=== PATIENT | female | born 1965 | race Caucasian/White ===

== ENCOUNTER 2019-09-27 12:46 | Outpatient (CLI) | payer OTHER, SELFPAY ==
--- NOTE | ~2019-09-27 | US_ITS ---
US pelvic complete w TV DATE: 09/27/2019 13:20 INDICATION: Irregular menstruation TECHNIQUE: Real-time imaging via transabdominal and transvaginal approaches COMPARISON: 09/15/2018 transvaginal pelvic ultrasound examination FINDINGS: The uterus measures approximately 9.7 cm height, up to 4.7 cm anteroposterior dimension. The central endometrial echo complex measures approximately 9 mm maximal anteroposterior dimension. A n approximately 1. 81.3 cm probable uterine fibroids are noted. 1.1 cm right ovarian cyst. Right ovary measures 1.7 x 1.3 x 2.2 cm. Left ovary measures 1.3 x 1 x 1 c m. There is blood flow to the ovaries. No pelvic mass or abnormal pelvic fluid collection is noted otherwise. IMPRESSION: Mild uterine enlargement with evidence of uterine fibroids 1.1 cm right ovarian cyst Reviewed, dictated and finalized at Location [facility]. Reviewed, dictated and finalized at location B.
== END 2019-09-27 12:47 ==
PROVIDERS: Visit Provider Obstetrics & Gynecology
DX: N92.6 Irregular menstruation, unspecified (principal); N83.201 Unspecified ovarian cyst, right side; D25.9 Leiomyoma of uterus, unspecified
CPT/HCPCS: 76830; 76856

== ENCOUNTER → 2019-10-25 14:50 | Outpatient (CLI) | payer OTHER, SELFPAY ==
--- NOTE | ~2019-10-25 | MM_ITS ---
EXAMINATION: MM screening [facility] BI w [facility] HISTORY: Screening mammogram TECHNIQUE: Craniocaudal and mediolateral oblique 3-D tomosynthesis images were obtained and synthetic 2-D images were generated. CAD analysis was submitted and interpreted. COMPARISON: 06/23/2018, 11/28/2016 bilateral digital screening mammogram examinations BREAST PARENCHYMAL COMPOSITION: There are scattered areas of fibroglandular density. FINDINGS: Occasional benign calcifications. There is no evidence of suspicious mass, calcification, o r architectural distortion to suggest malignancy in either breast. There has been no suspicious inter timur change. IMPRESSION: 1. No mammographic evidence of malignancy. 2. Recommend routine screening mammography in one year. BI-RADS Category 2: Benign finding(s). Reviewed, dictated and finalized at location A.
== END ==
PROVIDERS: Visit Provider Obstetrics & Gynecology
DX: Z12.31 Encounter for screening mammogram for malignant neoplasm of breast (principal)
CPT/HCPCS: 77063; 77067

== ENCOUNTER 2019-12-13 10:31 | Outpatient (CLI) | payer OTHER, SELFPAY ==
--- NOTE | 2019-12-13 10:33 | ECG_ITS ---
Measurements Intervals [place] Rate: 57 P: 40 IN: 174 QRS: -25 QRSD: 105 T: 14 QT: 417 QTc: 408 Interpretive Statements SINUS BRADYCARDIA DELAYED PRECORDIAL R/S TRANSITION BASELINE ARTIFACT- I, II, III, AVR, AVL BORDERLINE ECG Electronically Signed On 12-13-2019 10:52:46 CDT by Bassem Painter D.O.
== END 2019-12-13 10:32 | disposition home or self-care (01) ==
PROVIDERS: PCP Nurse Practitioner Adult Health; Visit Provider Obstetrics & Gynecology
DX: N93.9 Abnormal uterine and vaginal bleeding, unspecified (principal); I10 Essential (primary) hypertension; Z01.818 Encounter for other preprocedural examination; R94.31 Abnormal electrocardiogram [ECG] [EKG]
CPT/HCPCS: 36415; 86850; 86900; 86901; 93005

== ENCOUNTER 2019-12-18 01:23 | Outpatient (CLI) | payer OTHER, SELFPAY ==
[2019-12-18 18:16] LABS: SARS-CoV-2 RNA PCR Negative
== END 2019-12-18 01:24 | disposition home or self-care (01) ==
LOC: ANHCOVIDDT 01:24
PROVIDERS: PCP Nurse Practitioner Adult Health; Visit Provider Obstetrics & Gynecology
DX: Z01.812 Encounter for preprocedural laboratory examination (principal); Z20.828 Contact with and (suspected) exposure to other viral communicable diseases
CPT/HCPCS: 87635; C9803; U0003

== ENCOUNTER 2019-12-20 01:13 | Day surgery (SDC) | payer OTHER, SELFPAY ==
[2019-12-11 17:49] VITALS: BMI 29.9
--- NOTE | 2019-12-19 14:05 | P.PNAN_ITS ---
Anes - Initial Pre Proc Eval Procedure: Operation Date: 12/20/19 07:30 Proposed Procedures p Robotic Assisted Laparoscopic Supracervical Hysterectomy Bilateral Salpingo- Oophorectomy - Ananda Serrano MD Date/Time: 12/19/19 14:05 Surgeon: Ananda Serrano MD Pre Op Diagnosis: Endometrial Polyp Patient Data Age: 54 Gender: F Height: 5 ft 4 in Weight: 79.3 kg Allergies Allergy/AdvReac Type Severity Reaction Status Date / Time No Known Allergies Allergy Verified 12/20/19 06:07 Home Medications Medication Instructions Recorded Confirmed Type losartan 50 mg tablet 50 mg PO DAILY 09/18/19 12/20/19 History Daily Multivitamin 1 tab-cap PO DAILY 12/11/19 12/20/19 History scopolamine base 1 mg over 3 days 1 patch TRANSDERM Q72H #1 each 12/11/19 12/20/19 Rx transdermal patch fluticasone furoate-vilanterol 1 inh INHALATION DAILY 12/20/19 12/20/19 History [Breo Ellipta] Patient hx anesthesia problems: none Family hx anesthesia problems: none PMFSH Past Medical History Medical History (Updated 12/19/19 @ 14:05 by Robert Garvey MD) Anemia Asthma Hepatitis Hypertension (normal spontaneous vaginal delivery) Surgical History Surgical History History of elbow surgery Family History Family History Sibling Carcinoma of colon Father Patient's father is Social History Social History Years smoked: 20 Smoking status: Current every day smoker Tobacco type: cigarettes Second hand tobacco smoke exposure: No Smoking end date: 03/08/08 Alcohol intake: current Drinks per week: 12 Gender identity (if verbalized by the patient): Female Spiritual care concerns: No Anes - Eval Final PreProcedure Day of Procedure 12/19/19 14:05 Patient weight: normal Heart: regular rate and rhythm Lungs: clear to auscultation Airway: Mallampati scale class II Neurological: alert and oriented Last oral intake: >/= 8 hours ASA classification: III Emergent: no Anesthetic plan: proceed Anesthesia type and monitoring: general ETT and standard monitoring Informed Consent: The patient's anesthetic plan and its attendant risks and benefits were discussed with the patient/family/POA. Questions were solicited and answers provided to the satisfaction of the patient/family/POA.
--- NOTE | 2019-12-19 16:38 | PM.IMHP ---
H&P: HPI History of Present Illness Date/Time: 12/19/19 16:38 Chief complaint: Endometrial Polyp Narrative: Karina Johns is a 54 year old female with irregular bleeding which started in July. She is perimenopausal. She has had a prior hysteroscopy D and C last year and an endometrial polyp was found. On recent ultrasound she had a small fibroid which she was informed at that size is usually not the cause of irregular bleeding. As part of irregular bleeding work up and history of endometrial polyp a subsequent endometrial biopsy showed endometrial polyp. She was offered hysteroscopic removal and was made aware that polyps can reoccur, as it did this time or option of definitive treatment of the recurrent irregular bleeding with hysterectomy. She desires hysterectomy. Counseled regarding risk benefit of oophorectomy or keeping ovaries. She desires ovaries to be removed also. Review of Systems Review of Systems: All systems reviewed & are unremarkable except as noted in HPI and below Constitutional: Constitutional: Reports no additional constitutional complaints Eyes: Eyes: Reports no additional eye complaints ENT: Reports Normal hearing present Cardiovascular: Cardiovascular: Denies chest pain and Denies dyspnea Respiratory: Respiratory: Reports no additional respiratory complaints, Denies dyspnea and Reports other Gastrointestinal: Gastrointestinal: Denies abdominal pain Genitourinary: Genitourinary: Reports no additional female genitourinary complaints, Reports as per HPI, Denies dyspareunia, Denies vaginal discharge, Denies vaginal dryness, Denies vaginal odor and Denies vaginal pruritus Integumentary/Breasts: Skin/Breast: Denies breast mass and Denies nipple discharge Neurologic: Reports Normal hearing present Psychiatric: Psychiatric: Reports no additional psychiatric complaints Endocrine: Endocrine: Reports no additional endocrine complaints Hematologic/Lymphatic: Hematologic/Lymphatic: Reports no additional hematologic/lymphatic complaints [facility] Past Medical History Medical History Anemia Asthma Hepatitis Hypertension (normal spontaneous vaginal delivery) Surgical History Surgical History History of elbow surgery Family History Family History Sibling Carcinoma of colon Father Patient's father is Social History Social History Years smoked: 20 Smoking status: Current every day smoker Tobacco type: cigarettes Second hand tobacco smoke exposure: No Smoking end date: 03/08/08 Alcohol intake: current Drinks per week: 12 Gender identity (if verbalized by the patient): Female Spiritual care concerns: No Meds Home Medications and Allergies Home Medications Medication Instructions Recorded Confirmed Type losartan 50 mg tablet 50 mg PO DAILY 09/18/19 12/20/19 History Daily Multivitamin 1 tab-cap PO DAILY 12/11/19 12/20/19 History scopolamine base 1 mg over 3 days 1 patch TRANSDERM Q72H #1 each 12/11/19 12/20/19 Rx transdermal patch fluticasone furoate-vilanterol 1 inh INHALATION DAILY 12/20/19 12/20/19 History [Breo Ellipta] Allergies Allergy/AdvReac Type Severity Reaction Status Date / Time No Known Allergies Allergy Verified 12/20/19 06:07 Exam Const: General: healthy appearing, no acute distress, alert and awake Nutritional Appearance: well nourished Orientation/consciousness: oriented to person, oriented to place and patient oriented x3 HENMT: Head: normal to inspection Eyes: General: appearance normal, both eyes and all related structures Neck: Neck: normal visual inspection and no lymphadenopathy Thyroid: thyroid normal Resp: Effort & Inspection: normal respiratory effort and other Auscultation: clear to
[2019-12-20] VITALS (14 sets, daily range): BP systolic 121–154; BP diastolic 42–80; PULSE 47–80; RESP 12–20; TEMP 36.2–37.1; O2SAT 99–100
[2019-12-20 07:00] LABS: Hematocrit 38.3 % (37.0-47.0); Hemoglobin 13.4 g/dL (12.0-15.0); Mean Corpuscular Volume 94.3 fl (80-100); Platelet Count Result 217 k/mm3 (150-375); Red Blood Count 4.06 M/mm3 (4.2-5.4); Red Cell Distribution Width 12.3 % (11.5-14.5); White Blood Count 7.7 K/mm3 (4.5-10.0)
[2019-12-20] MEDS: ACETAMINOPHEN 500 MG TABLET 1000 MG PO (07:08)
[2019-12-20] MEDS: KETOROLAC 15 MG/ML VIAL (*BKC) IV PUSH (07:09)
[2019-12-20] MEDS: LACTATED RINGERS 1,000 ML 30 ML IV CONT ×2 (07:09→10:36)
--- NOTE | 2019-12-20 07:18 | WPDHPUPDATE1 ---
History and Physical Update Update Date/Time: 12/20/19 07:18 History and Physical has been reviewed, including an updated exam of the patient. There are NO changes in the patient's condition. Risks, benefits, and alternatives have been discussed and questions answered. Patient agrees to proceed with procedure.
[2019-12-20] MEDS: ceFAZolin 2 GM/D5W 50 ML 2 GM/50 ML BAG IVPB (07:23)
--- NOTE | 2019-12-20 10:51 | PM.PROC ---
Procedure Note - Detailed Date of procedure: 12/20/19 Pre-op diagnosis: Endometrial Polyp 2.Abnormal uterine bleeding 3. Fibroid uterus Post-op diagnosis: other (4.Pelvic adhesions 5. Ovarian cyst) Procedure performed: Robotic assisted laparoscopic total hysterectomy and bilateral salpingectomy. 2. Lysis of adhesions 3. Cystoscopy Description of procedure: After informed consent was obtained patient was taken to the operating room and general endotracheal anesthesia was administered. She was placed in low lithotomy position and prepped and draped in sterile fashion. Prior to being prepped and draped and exam under anesthesia was performed and no masses were palpated uterus palpated to be normal size. Attention was then turned to the vagina. A Gomez catheter had been placed in bladder during prep. Weighted speculum was placed in the vagina. The anterior vaginal wall was retracted with a retractor. A single-tooth tenaculum was placed on the anterior lip of the cervix the uterus was sounded to 10 cm the cervix was dilated to an 8 rios dilator. The uterine manipulator was inserted and the bulb inflated a size 8 uterine manipulator was used. A 4cm colp cup was secured in the vagina. Prior to securing the cup the single-tooth tenaculum was removed from the cervix. Attention was then turned to the abdomen. With sterile gloves a horizontal incision was made 2cm above the umbilicus with the scalpel. A Veress needle was inserted into the abdomen confirmation into the abdomen was obtained with normal free flow of fluid through the veress needle and normal peritoneal pressures. A pneumoperitoneum of 15 mm per mercury was obtained and a size 5 trocar was inserted under laparoscopic visualization. Attention was then turned to the left side of the abdomen and a 8mm robotic port was inserted under laparoscopic visualization. Attention was then turned to the right side parallel to this and a robotic port was inserted under laparoscopic visualization. Superior and medial to this a curriculum assistant port was inserted under laparoscopic visualization. The 5 mm laparoscope was inserted into right port and an 8mm robotic port was inserted under laparoscopic visualization at the supraumbilical site. The patient was placed in Trendelenburg to allow the intestinal organs out of the pelvis. The robotic arms were then attached to the ports. Attention was then turned to the surgery console. Attention was turned to the right round ligament which was cauterized and cut the anterior leaf of the broad ligament was further dissected anteriorly to the vesicouterine peritoneum. The bladder was dissected from the lower uterine segment anteriorly. Attention was then turned to the infundibulopelvic ligament which was cauterized and incised. There were some mild adhesions of the right ovary to posterior uterus and broad ligament which were incised and cauterized to free the ovary from the posterior uterus. The broad ligament was further cauterized and ascending uterine vessels were cauterized. The uterine arteries were skeletonized. Attention was then turned to the left round ligament which was cauterized and incised. The anterior leaf of the broad ligament was further incised to the vesicouterine peritoneum. The bladder was further dissected from the rest of the lower uterine segment. The left fallopian tube was adhesed to the pelvic sidewall. The adhesions were cauterized. The left infundibulopelvic ligament was then cauterized and incised. The broad ligament was further cauterized posteriorly. The uterine vessels were skeletonized. The ascending uterine vessels were cauterized. The uterine vessels on the left were cauterized and the cardinal ligaments. The uterine arteries on the left side were cauterized and the cardinal ligament was cauterized. This was done after the bladder was fully dissected below the palpable colp cup. Attention was then turned to the right side and the uterine arteries on the right were
[2019-12-20] MEDS: DEXTROSE 5%/LACTATED RINGERS 1,000 ML 125 ML IV CONT (14:00)
[2019-12-20] MEDS: KETOROLAC 30 MG/ML VIAL (*BKC) IV PUSH (17:29)
[2019-12-21 00:46] VITALS: BP 117/67; PULSE 54; RESP 16; TEMP 36.4; O2SAT 99
[2019-12-21 04:46] VITALS: BP 113/72; PULSE 60; RESP 14; TEMP 36.4; O2SAT 98
[2019-12-21] MEDS: HYDROcodone/acetaminophen (*CRX) 10-325 MG TABLET 1 TAB PO (04:52)
[2019-12-21 07:30] VITALS: BP 119/69; PULSE 54; RESP 18; TEMP 36.8; O2SAT 99
--- NOTE | 2019-12-21 08:42 | PM.GYNPNOP ---
WELD TECHNICIAN - A/P Assessment and plan (1) Encounter for postoperative care: Code(s): Z48.89 - Encounter for other specified surgical aftercare Status: Acute Assessment and Plan: POS1 s/p [facility]. She is doing well. Discussed her surgery with her. Will discharge home. Discharge precautions discussed. Postoperative Procedures: Procedures Operation Date: 12/20/19 07:30 Actual Procedures Side Surgeon p Robotic Assisted Laparoscopic Hysterectomy Bilateral Salpingo-Oophorectomy, Cystoscopy Ananda Serrano MD Time Spent With Patient Time: Total time spent is greater than 50% in coordination of care (as documented) at patient's floor/unit and/or counseling patient: Time with patient: less than 15 minutes WELD TECHNICIAN- PN:Subj Post-Op Subjective Date/time seen: 12/21/19 08:42 Interval history: She has set walked in room without problems. She reports positive flatus. Has soreness in abdomen. She has had a good pain control with oral pain medication. Has urinated without problems. Subjective: pain is well controlled and patient is tolerating oral intake Review of Systems Review of Systems: All systems reviewed & are unremarkable except as noted in HPI and below Cardiovascular: Cardiovascular: Reports no additional cardiovascular complaints Respiratory: Respiratory: Reports no additional respiratory complaints Gastrointestinal: Gastrointestinal: Denies nausea and Denies vomiting Genitourinary: Genitourinary: Reports no additional female genitourinary complaints Musculoskeletal: Musculoskeletal: Reports no additional musculoskeletal complaints Exam Const: General: comfortable and no acute distress Orientation/consciousness: oriented to person, oriented to place and oriented to time Resp: Auscultation: clear to auscultation bilaterally Cardio: Rate: regular rate Rhythm: regular rhythm GI: GI Palp: Yes Soft to palpation and No Tenderness to palpation present (GI) Auscultation: normal bowel sounds Other: incision healing, no drainage, mild bruising, + BS, mild tenderness no guarding : Other: labial sutures intact healing Neuro: General: oriented to person, oriented to place and oriented to time Extrem: General: no calf tenderness Psych: Mental Status: mental status grossly normal WELD TECHNICIAN - PN: Obj Data Vital Signs Vital Signs: Vital Signs - 24 hr 12/20/19 10:30 12/20/19 10:44 12/20/19 11:00 Temperature 97.2 F L Pulse Rate 78 51 L 53 L Respiratory Rate 18 16 16 Blood Pressure 124/80 134/42 L 141/77 H Pulse Oximetry 100 100 100 12/20/19 11:17 12/20/19 11:42 12/20/19 11:45 Temperature 97.1 F L Pulse Rate 51 L 51 L 50 L Respiratory Rate 12 16 16 Blood Pressure 149/71 H 132/75 147/70 H Pulse Oximetry 100 100 99 12/20/19 12:00 12/20/19 12:30 12/20/19 13:00 Temperature 97.8 F Pulse Rate 53 L 48 L 51 L Respiratory Rate 16 16 16 Blood Pressure 154/74 H 151/71 H 144/71 H Pulse Oximetry 100 100 100 12/20/19 14:00 12/20/19 15:18 12/20/19 16:05 Temperature 97.8 F Pulse Rate 55 L 52 L 56 L Respiratory Rate 16 16 20 Blood Pressure 140/79 133/71 125/73 Pulse Oximetry 100 100 12/20/19 20:00 12/21/19 00:46 12/21/19 04:46 Temperature 97.7 F 97.5 F L 97.6 F Pulse Rate 80 54 L 60 Respiratory Rate 18 16 14 Blood Pressure 127/80 117/67 113/72 Pulse Oximetry 100 99 98 Intake/Output Intake/Output: Intake & Output 12/18/19 12/19/19 12/20/19 12/21/19 23:59 23:59 23:59 23:59 Intake Total 3850 1600 Output Total 1985 300 Balance 1865 1300 Meds/Results Medications: Active Medications Generic Name Dose Route Start Last Admin Trade Name Freq PRN Reason Stop Dose Admin Hydrocodone Bitart/Acetaminophen 1 tab 12/20/19 11:01 Hydrocodone/Acetaminophen (*Crx) 5-325 Mg Tablet PO Q3H PRN Pain Rated 5 or Less Hydrocodone Bitart/Acetaminophen 1 tab 12/20/19 11:01 12/21/19 04:52 Hydrocodone/Acetaminophen (*Crx) 10-325 Mg Tablet PO 1 tab Q3H PRN A
== END 2019-12-21 10:46 | disposition home or self-care (01) ==
LOC: ANHSURGERY 05:59 → ANHOB2 11:30
PROVIDERS: PCP Nurse Practitioner Adult Health; Visit Provider Obstetrics & Gynecology
PROC: (CPT 58571; principal; 2019-12-20 07:30)
DX: N93.9 Abnormal uterine and vaginal bleeding, unspecified (principal); N84.0 Polyp of corpus uteri; D25.9 Leiomyoma of uterus, unspecified; N80.0 Endometriosis of uterus; D27.0 Benign neoplasm of right ovary; N83.12 Corpus luteum cyst of left ovary; N80.1 Endometriosis of ovary; N80.2 Endometriosis of fallopian tube; N72 Inflammatory disease of cervix uteri; D64.9 Anemia, unspecified; I10 Essential (primary) hypertension; J45.909 Unspecified asthma, uncomplicated; F17.210 Nicotine dependence, cigarettes, uncomplicated; Z23 Encounter for immunization
CPT/HCPCS: 58571; S2900; 36415; 85027; 86850; 86900; 86901; 87635; 88307; 90471; 90653; 93005; 99199; A9270; C9803; G0008; J0131; J0690; J1100; J1885; J2250; J2370; J2405; J2704; J2710; J3010; J7030; J7120; J7121; U0003

== ENCOUNTER → 2020-01-29 11:50 | Outpatient (CLI) | payer OTHER, SELFPAY ==
--- NOTE | ~2020-01-29 | XR_ITS ---
EXAMINATION: XR chest 2V 01/29/2020 12:17 INDICATION: Covid19 PROCEDURE: 2 view chest COMPARISON: 03/20/2013 FINDINGS: The lungs are clear. The cardiomediastinal silhouette is within normal limits. There are no pleural effusions. There is no pneumothorax suspected. IMPRESSION: 1: NO ACUTE CARDIOPULMONARY DISEASE. Reviewed, dictated and finalized at location A. L OFFICE ADMINISTRATOR
== END ==
PROVIDERS: Visit Provider Nurse Practitioner Adult Health
DX: U07.1 COVID-19 (principal)
CPT/HCPCS: 71046

== ENCOUNTER 2020-09-24 09:20 | Outpatient (CLI) | payer OTHER, SELFPAY ==
[2020-09-24 10:02] LABS: Basophils Percent Auto 0.6 % (0.2-1.2); Eosinophils Absolute Auto 0.2 K/mm3 (0-0.3); Eosinophils Percent Auto 4.1 % (0-4.4); Hematocrit 42.6 % (37.0-47.0); Hemoglobin 14.3 g/dL (12.0-15.0); Immature Granulocyte Absolute 0.02 K/mm3 (0.00-0.031); Immature Granulocyte Percent A 0.4 % (0-0.5); Lymphocytes Absolute Auto 1.95 K/mm3 (0.9-3.2); Lymphocytes Percent Auto 36.2 % (18.3-44.2); Mean Corpuscular HGB Conc 33.6 g/dl (32-36); Mean Corpuscular Hemoglobin 32.3 pg (26-34); Mean Corpuscular Volume 96.2 fl (80-100); Mean Platelet Volume 10.6 fl (7.4-10.4); Monocytes Absolute Auto 0.3 K/mm3 (0.1-0.6); Monocytes Percent Auto 6.1 % (2.6-8.5); Neutrophils Absolute Auto 2.8 K/mm3 (1.3-6.7); Neutrophils Percent Auto 52.6 % (45.5-73.1); Platelet Count Result 223 k/mm3 (150-375); Red Blood Count 4.43 M/mm3 (4.2-5.4); Red Cell Distribution Width 12.1 % (11.5-14.5); White Blood Count 5.4 K/mm3 (4.5-10.0)
[2020-09-24 10:10] LABS: Alanine Aminotransferase 26 U/L (4-35); Albumin Level 4.4 g/dL (3.5-5.1); Alkaline Phosphatase 82 U/L (38-126); Anion Gap 6 mmol/L (8-16); Aspartate Amino Transferase 29 U/L (14-36); Bilirubin,Total 0.7 mg/dL (0.2-1.3); Blood Urea Nitrogen 14 mg/dL (7-17); Carbon Dioxide 28 mmol/L (22-30); Chloride 107 mmol/L (98-107); Cholesterol 196 mg/dL (0-200); Estimated Glomerular Filt Rate > 60; Glucose 87 mg/dL (65-110); HDL Direct 58 mg/dL; Potassium 4.3 mmol/L (3.4-5.0); Sodium 141 mmol/L (137-145); Triglycerides 173 mg/dL (<150)
[2020-09-24 10:22] LABS: LDL Cholesterol Direct 96 mg/dL
[2020-09-24 10:36] LABS: Vitamin D 25 Hydroxy 50.4 ng/mL
== END 2020-09-24 09:21 | disposition home or self-care (01) ==
PROVIDERS: PCP Nurse Practitioner Adult Health; Visit Provider Obstetrics & Gynecology
DX: Z00.00 Encounter for general adult medical examination without abnormal findings (principal)
CPT/HCPCS: 36415; 80053; 80061; 82306; 84443; 85025

== ENCOUNTER 2020-11-05 10:32 | Outpatient (CLI) | payer OTHER, SELFPAY ==
[2020-11-05 11:17] LABS: Alanine Aminotransferase 21 U/L (4-35); Albumin Level 4.3 g/dL (3.5-5.1); Alkaline Phosphatase 75 U/L (38-126); Aspartate Amino Transferase 30 U/L (14-36); Bilirubin,Total 0.4 mg/dL (0.2-1.3)
== END 2020-11-05 10:33 | disposition home or self-care (01) ==
LOC: ANHLAB 10:35
PROVIDERS: PCP Nurse Practitioner Adult Health; Visit Provider Obstetrics & Gynecology
DX: Z79.890 Hormone replacement therapy (principal)
CPT/HCPCS: 36415; 80076

== ENCOUNTER 2020-11-06 02:09 | Day surgery (SDC) | payer OTHER, SELFPAY ==
[2020-10-25 11:48] VITALS: BMI 31.8
[2020-11-06 09:27] VITALS: BP 141/90; PULSE 55; RESP 18; TEMP 36.8; O2SAT 100; BMI 31.9
[2020-11-06] MEDS: LACTATED RINGERS 1,000 ML 150 ML IV CONT (09:50)
--- NOTE | 2020-11-06 10:02 | WPDANESEPPF ---
Anes - Initial Pre Proc Eval Procedure: Operation Date: 11/06/20 10:30 Proposed Procedures p Screening Colonoscopy - Jamir Matute MD Date/Time: 11/06/20 10:02 Surgeon: Jamir Matute MD Pre Op Diagnosis: hx of colon polyps Patient Data Age: 55 Gender: F Height: 1.63 m Weight: 84.4 kg Last Vital Signs Temp 98.2 F 11/06/20 09:27 Pulse 55 L 11/06/20 09:27 Resp 18 11/06/20 09:27 BP 141/90 H 11/06/20 09:27 Pulse Ox 100 11/06/20 09:27 Allergies Allergy/AdvReac Type Severity Reaction Status Date / Time No Known Allergies Allergy Verified 11/06/20 09:33 Home Medications Medication Instructions Recorded Confirmed Type losartan 50 mg tablet 50 mg PO DAILY 09/18/19 11/06/20 History ascorbate calcium (vitamin C) 500 500 mg PO DAILY 09/24/20 11/06/20 History mg tablet cholecalciferol (vitamin D3) 25 25 mcg PO DAILY 09/24/20 11/06/20 History mcg (1,000 unit) capsule Plexus Probiotic 2 cap PO QPM 10/25/20 11/06/20 History albuterol sulfate 2 inh INHALATION Q4H PRN 10/25/20 11/06/20 History calcium carb-mag ox-zinc sulf 1 cap PO DAILY 10/25/20 11/06/20 History fluticasone propion-salmeterol 1 ea INHALATION DAILY 10/25/20 11/06/20 History [Advair Diskus] estradiol 1 mg tablet 1 mg PO DAILY #90 tablet 11/05/20 11/06/20 Rx Patient hx anesthesia problems: none Family hx anesthesia problems: none PMFSH Past Medical History Medical History Anemia Asthma Hepatitis Hypertension Missed x1 (normal spontaneous vaginal delivery) x2 Surgical History Surgical History History of bilateral salpingectomy 12/19/20 History of cystoscopy 12/20/19 History of elbow surgery History of hysterectomy 12/20/19, Robotic assist laparoscopic total hysterectomy, lysis of adhesions Family History Family History Sibling Carcinoma of colon Father Patient's father is Social History Social History Years smoked: 23 Smoking status: Light tobacco smoker Tobacco type: cigarettes Second hand tobacco smoke exposure: No Smoking end date: 03/08/08 Alcohol intake: current Drinks per week: 12 Substance use: never Substance use type: does not use Living arrangements: with family Gender identity (if verbalized by the patient): Female Spiritual care concerns: No Anes - Eval Final PreProcedure Day of Procedure 11/06/20 10:02 Patient weight: obese Heart: regular rate and rhythm Lungs: clear to auscultation Airway: Mallampati scale class II Neurological: alert and oriented Last oral intake: >/= 8 hours ASA classification: III Emergent: no Anesthetic plan: proceed Anesthesia type and monitoring: general GIVS and standard monitoring Informed Consent: The patient's anesthetic plan and its attendant risks and benefits were discussed with the patient/family/POA. Questions were solicited and answers provided to the satisfaction of the patient/family/POA.
--- NOTE | 2020-11-06 10:07 | PM.HPGS ---
History of Present Illness History of Present Illness Consent: Risks, benefits, and alternatives have been discussed and questions answered. Patient agrees to proceed with procedure. Chief complaint: hx of colon polyps Narrative: Karina Johns is a 55 year old female with colon polyps about 6 years ago. Review of Systems Constitutional: Constitutional: Denies headache(s) and Denies weakness Eyes: Eyes: Denies blurry vision ENT: Reports Normal hearing present, Denies headache(s) and Denies neck pain Cardiovascular: Cardiovascular: Denies chest pain and Denies dyspnea Respiratory: Respiratory: Denies dyspnea Gastrointestinal: Gastrointestinal: Reports no additional gastrointestinal complaints Genitourinary: Genitourinary: Denies dysuria Musculoskeletal: Musculoskeletal: Denies neck pain Integumentary/Breasts: Skin/Breast: Denies dry skin Neurologic: Reports Normal hearing present, Denies headache(s) and Denies weakness Psychiatric: Psychiatric: Denies anxiety Endocrine: Endocrine: Denies change in body appearance Hematologic/Lymphatic: Hematologic/Lymphatic: Denies easy bleeding Allergic/Immunologic: Allergic/Immunologic: Denies urticaria PMFSH Past Medical History Medical History (Updated 11/06/20 @ 10:08 by Jamir Matute MD) Anemia Asthma Colon polyp Hepatitis Hypertension Missed x1 (normal spontaneous vaginal delivery) x2 Surgical History Surgical History History of bilateral salpingectomy 12/19/20 History of cystoscopy 12/20/19 History of elbow surgery History of hysterectomy 12/20/19, Robotic assist laparoscopic total hysterectomy, lysis of adhesions Family History Family History Sibling Carcinoma of colon Father Patient's father is Social History Social History Years smoked: 23 Smoking status: Light tobacco smoker Tobacco type: cigarettes Second hand tobacco smoke exposure: No Smoking end date: 03/08/08 Alcohol intake: current Drinks per week: 12 Substance use: never Substance use type: does not use Living arrangements: with family Gender identity (if verbalized by the patient): Female Spiritual care concerns: No Meds Home Medications and Allergies Home Medications Medication Instructions Recorded Confirmed Type losartan 50 mg tablet 50 mg PO DAILY 09/18/19 11/06/20 History ascorbate calcium (vitamin C) 500 500 mg PO DAILY 09/24/20 11/06/20 History mg tablet cholecalciferol (vitamin D3) 25 25 mcg PO DAILY 09/24/20 11/06/20 History mcg (1,000 unit) capsule Plexus Probiotic 2 cap PO QPM 10/25/20 11/06/20 History albuterol sulfate 2 inh INHALATION Q4H PRN 10/25/20 11/06/20 History calcium carb-mag ox-zinc sulf 1 cap PO DAILY 10/25/20 11/06/20 History fluticasone propion-salmeterol 1 ea INHALATION DAILY 10/25/20 11/06/20 History [Advair Diskus] estradiol 1 mg tablet 1 mg PO DAILY #90 tablet 11/05/20 11/06/20 Rx Allergies Allergy/AdvReac Type Severity Reaction Status Date / Time No Known Allergies Allergy Verified 11/06/20 09:33 Vital Signs Vital Signs - 24 hr 11/06/20 09:27 Temperature 98.2 F Pulse Rate 55 L Respiratory Rate 18 Blood Pressure 141/90 H Pulse Oximetry 100 Exam Const: General: comfortable and no acute distress HENMT: General nose exam: Normal nares present Eyes: General: appearance normal, both eyes and all related structures Neck: Neck: no JVD Resp: Auscultation: clear to auscultation bilaterally Cardio: Rate: regular rate Rhythm: regular rhythm GI: Inspection: non-distended GI Palp: Yes Soft to palpation Skin: General skin exam: normal color Neuro: General: gait normal Speech: normal speech Extrem: General: normal to inspection Psych: Mental Sta
[2020-11-06 10:36] VITALS: BP 110/76; PULSE 60; RESP 22; O2SAT 98
[2020-11-06 10:46] VITALS: BP 105/63; PULSE 56; RESP 21; O2SAT 98
[2020-11-06 10:56] VITALS: BP 115/79; PULSE 52; RESP 21; O2SAT 98
== END 2020-11-06 11:10 | disposition home or self-care (01) ==
PROVIDERS: PCP Nurse Practitioner Adult Health; Visit Provider Internal Medicine Gastroenterology
PROC: 0DJD8ZZ Inspection of Lower Intestinal Tract, Via Natural or Artificial Opening Endoscopic (ICD-10-PCS; CPT 45378; principal; 2020-11-06 10:30)
DX: Z12.11 Encounter for screening for malignant neoplasm of colon (principal); D12.2 Benign neoplasm of ascending colon; D12.3 Benign neoplasm of transverse colon; K63.5 Polyp of colon; K57.30 Diverticulosis of large intestine without perforation or abscess without bleeding; K64.8 Other hemorrhoids; J45.909 Unspecified asthma, uncomplicated; D64.9 Anemia, unspecified; I10 Essential (primary) hypertension; Z79.51 Long term (current) use of inhaled steroids; Z87.891 Personal history of nicotine dependence; E66.9 Obesity, unspecified; Z68.31 Body mass index [BMI] 31.0-31.9, adult
CPT/HCPCS: 45385; 88305; J2704; J7120

== ENCOUNTER → 2021-02-26 13:57 | Outpatient (CLI) | payer OTHER, SELFPAY ==
--- NOTE | ~2021-02-26 | MM_ITS ---
EXAMINATION: MM screening [facility] BI w [facility] HISTORY: Screening mammogram TECHNIQUE: Craniocaudal and mediolateral oblique 3-D tomosynthesis images were obtained and synthetic 2-D images were generated. CAD analysis was submitted and interpreted. COMPARISON: 10/25/2019, 06/23/2018, 11/28/2016 BREAST PARENCHYMAL COMPOSITION: There are scattered areas of fibroglandular density. FINDINGS: There is no evidence of suspicious mass, calcification, or architectural distortion to sugg est malignancy in either breast. There has been no suspicious interval change. IMPRESSION: 1. No mammographic evidence of malignancy. 2. Recommend routine screening mammography in one year. BI-RADS Category 1: Negative Reviewed, dictated and finalized at location A. TER HELPER
== END ==
PROVIDERS: PCP Nurse Practitioner Adult Health; Visit Provider Obstetrics & Gynecology
DX: Z12.31 Encounter for screening mammogram for malignant neoplasm of breast (principal)
CPT/HCPCS: 77063; 77067

== ENCOUNTER → 2022-07-08 14:09 | Outpatient (CLI) | payer OTHER, SELFPAY ==
--- NOTE | ~2022-07-08 | MM_ITS ---
EXAMINATION: MM screening [facility] BI w rosanna HISTORY: Screening mammogram TECHNIQUE: Craniocaudal and mediolateral oblique 3-D tomosynthesis images were obtained and synthetic 2-D images were generated. CAD analysis was submitted and interpreted. COMPARISON: 02/26/2021, 10/25/2019, 06/13/2018 BREAST PARENCHYMAL COMPOSITION: There are scattered areas of fibroglandular density. FINDINGS: A stable mass of the lower inner left breast considered benign given the lack of interval c hange. No suspicious mass, calcification, or architectural distortion are identified in either breast to suggest malignancy. There has been no suspicious interval change. IMPRESSION: 1. No mammographic evidence of malignancy. 2. Recommend routine screening mammography in one year. BI-RADS Category 2: Benign finding(s). Reviewed, dictated and finalized at location A.
== END ==
PROVIDERS: PCP Obstetrics & Gynecology; Visit Provider Obstetrics & Gynecology
DX: Z12.31 Encounter for screening mammogram for malignant neoplasm of breast (principal)
CPT/HCPCS: 77063; 77067

== ENCOUNTER 2023-10-07 09:06 | Outpatient (CLI) | payer OTHER, SELFPAY ==
[2023-10-07 19:30] LABS: Alanine Aminotransferase 22 U/L (6-35); Alkaline Phosphatase 44 U/L (38-126); Anion Gap 7 mmol/L (4-12); Aspartate Amino Transferase 44 U/L (14-36); Bilirubin,Total 0.6 mg/dL (0.2-1.3); Blood Urea Nitrogen 14 mg/dL (7-17); Calcium 9.8 mg/dL (8.4-10.2); Carbon Dioxide 27 mmol/L (22-30); Chloride 103 mmol/L (98-107); Cholesterol 158 mg/dL (0-200); Estimated Glomerular Filt Rate > 60; Glucose 72 mg/dL (65-110); HDL Direct 61 mg/dL; Magnesium 2.3 mg/dL (1.6-2.3); Potassium 4.3 mmol/L (3.4-5.0); Sodium 137 mmol/L (137-145); Triglycerides 75 mg/dL (<150)
[2023-10-07 19:38] LABS: Basophils Percent Auto 0.5 % (0.2-1.2); Eosinophils Absolute Auto 0.2 K/mm3 (0-0.3); Eosinophils Percent Auto 2.8 % (0-4.4); Hematocrit 37.9 % (37.0-47.0); Hemoglobin 12.9 g/dL (12.0-15.0); Immature Granulocyte Absolute 0.01 K/mm3 (0.00-0.031); Immature Granulocyte Percent A 0.2 % (0-0.5); Lymphocytes Percent Auto 41.7 % (18.3-44.2); Mean Corpuscular Hemoglobin 32.4 pg (26-34); Mean Corpuscular Volume 95.2 fl (80-100); Mean Platelet Volume 10.8 fl (7.4-10.4); Monocytes Absolute Auto 0.4 K/mm3 (0.1-0.6); Neutrophils Absolute Auto 2.9 K/mm3 (1.3-6.7); Neutrophils Percent Auto 48.8 % (45.5-73.1); Platelet Count Result 220 k/mm3 (150-375); Red Blood Count 3.98 M/mm3 (4.2-5.4); Red Cell Distribution Width 12.4 % (11.5-14.5)
[2023-10-07 19:40] LABS: LDL Cholesterol Direct 79 mg/dL
== END 2023-10-07 09:07 | disposition home or self-care (01) ==
LOC: ANHGOSHLAB 09:07
PROVIDERS: PCP Nurse Practitioner Adult Health; Visit Provider Nurse Practitioner Adult Health
DX: I10 Essential (primary) hypertension (principal)
CPT/HCPCS: 36415; 80053; 80061; 83735; 84443; 85025

== ENCOUNTER 2023-11-24 06:28 | Day surgery (SDC) | payer OTHER, SELFPAY ==
[2023-11-01 14:05] VITALS: BMI 27.8
[2023-11-10 12:28] VITALS: BMI 26.6
[2023-11-24 07:05] VITALS: BP 125/87; PULSE 60; RESP 14; TEMP 36.6; O2SAT 100; BMI 26.0
--- NOTE | 2023-11-24 07:13 | PM.HPGS ---
History of Present Illness History of Present Illness Consent: Risks, benefits, and alternatives have been discussed and questions answered. Patient agrees to proceed with procedure. Chief complaint: Personal HX of Colonic Polyps Narrative: Karina Johns is a 58 year old female presents for screening colonoscopy. Patient's current weight appetite and bowel movements are normal. Patient denies abdominal pain. Has had no bleeding. Family history is significant her mother had colon polyps. Her brother had colon cancer. Patient herself had several colon polyps at the time of last endoscopy 3 years ago. Review of Systems Review of Systems: All systems reviewed & are unremarkable except as noted in HPI and below PMFSH Past Medical History Medical History (Updated 11/24/23 @ 07:15 by Ronaldo Cardenas MD) Anemia Asthma Colon polyp Hepatitis Hypertension Missed x1 (normal spontaneous vaginal delivery) x2 Surgical History Surgical History History of cystoscopy 12/20/19 History of elbow surgery History of hysterectomy 12/20/19, Robotic assist laparoscopic total hysterectomy, lysis of adhesions. with BSO S/P foot surgery S/P shoulder surgery [place] teeth removed Family History Family History (Updated 03/24/23 @ 14:50 by Meena Soto MA) Sibling Carcinoma of colon Father Patient's father is Mother Carcinoma of colon Marfans syndrome Social History Social History (Updated 03/24/23 @ 14:54 by Meena Soto MA) Years smoked: 40 Smoking status: Current every day smoker Tobacco type: cigarettes Second hand tobacco smoke exposure: No Smoking end date: 03/08/08 Alcohol intake: current Alcohol use details: occasional Substance use: current Substance use type: marijuana Other substance usage details: marijuana gummies for sleep as needed Lack of Transportation: No Lack of Food: Never True Current Housing: I Have Housing Concerned About Future Housing: No Difficulty Paying Gas/Electric Bills: No Difficulty Paying for Meds: No Currently Unemployed: No Education: High School Diploma/GED Difficulty w/ Childcare or Family Care: No Living arrangements: alone Occupation/Education: occupation 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 Gender identity (if verbalized by the patient): Female Sexual Orientation (if Verbalized by the Patient): Straight or Heterosexual Spiritual care concerns: No Agree to blood products: Yes Meds Home Medications and Allergies Home Medications Medication Instructions Recorded Confirmed Type Plexus Probiotic 2 cap PO QPM 10/25/20 11/24/23 History fluticasone 500 mcg-salmeterol 50 1 ea inhalation DAILY 10/25/20 11/24/23 History mcg/dose blistr powdr for inhalation (Advair Diskus) estradiol 1 mg tablet 1 mg PO DAILY #90 tabs 12/14/22 11/24/23 Rx Plexus Bio Cleanse 1 cap BYMOUTH DAILY 03/24/23 11/24/23 History Plexus Collagan 1 cap BYMOUTH DAILY 03/24/23 11/24/23 History alprazolam 0.25 mg tablet 0.25 mg PO QHS PRN sleep #30 tabs 09/30/23 11/24/23 Rx losartan 50 mg tablet 50 mg PO DAILY #90 tabs 09/30/23 11/24/23 Rx ondansetron 8 mg disintegrating See Rx Instructions .Route 11/09/23 11/24/23 Rx tablet .COMPLEX #18 tabs semaglutide (weight loss) 0.5 0.5 mg subcut WEEKLY 11/10/23 11/24/23 History mg/0.5 mL subcutaneous pen injector Allergies Allergy/AdvReac Type Severity Reaction Status Date / Time No Known Allergies Allergy Verified 11/24/23 06:53 Vital Signs Vital Signs - 24 hr 11/24/23 07:05 Temperature 97.8 F Pulse Rate 60 Respiratory Rate 14 Blood Pressure 125/87 Pulse Oximetry 100 Oxygen Delivery Room Air Exam Narrative: Physical exam reveals patient to be alert. Vital signs stable. HEENT exam is unremarkable. Patient is anicteric. Lungss are clear to auscultation
--- NOTE | 2023-11-24 07:14 | WPDANESEPPF ---
Anes - Initial Pre Proc Eval Procedure: Operation Date: 11/24/23 08:00 Proposed Procedures p Diagnostic Colonoscopy - Ronaldo Cardenas MD Date/Time: 11/24/23 07:14 Surgeon: Ronaldo Cardenas MD Pre Op Diagnosis: Personal HX of Colonic Polyps Patient Data Age: 58 Gender: F Height: 1.63 m Weight: 68.8 kg Last Vital Signs Temp 36.6 C 11/24/23 07:05 Pulse 60 11/24/23 07:05 Resp 14 11/24/23 07:05 BP 125/87 11/24/23 07:05 Pulse Ox 100 11/24/23 07:05 O2 Del Method Room Air 11/24/23 07:05 Allergies Allergy/AdvReac Type Severity Reaction Status Date / Time No Known Allergies Allergy Verified 11/24/23 06:53 Home Medications Medication Instructions Recorded Confirmed Type Plexus Probiotic 2 cap PO QPM 10/25/20 11/24/23 History fluticasone 500 mcg-salmeterol 50 1 ea inhalation DAILY 10/25/20 11/24/23 History mcg/dose blistr powdr for inhalation (Advair Diskus) estradiol 1 mg tablet 1 mg PO DAILY #90 tabs 12/14/22 11/24/23 Rx Plexus Bio Cleanse 1 cap BYMOUTH DAILY 03/24/23 11/24/23 History Plexus Collagan 1 cap BYMOUTH DAILY 03/24/23 11/24/23 History alprazolam 0.25 mg tablet 0.25 mg PO QHS PRN sleep #30 tabs 09/30/23 11/24/23 Rx losartan 50 mg tablet 50 mg PO DAILY #90 tabs 09/30/23 11/24/23 Rx ondansetron 8 mg disintegrating See Rx Instructions .Route 11/09/23 11/24/23 Rx tablet .COMPLEX #18 tabs semaglutide (weight loss) 0.5 0.5 mg subcut WEEKLY 11/10/23 11/24/23 History mg/0.5 mL subcutaneous pen injector Patient hx anesthesia problems: none Family hx anesthesia problems: none Results Review: All pre-operative results and documents have been reviewed as part of the pre-operative evaluation. [facility] Past Medical History Medical History Anemia Asthma Colon polyp Hepatitis Hypertension Missed x1 (normal spontaneous vaginal delivery) x2 Surgical History Surgical History History of cystoscopy 12/20/19 History of elbow surgery History of hysterectomy 12/20/19, Robotic assist laparoscopic total hysterectomy, lysis of adhesions. with BSO S/P foot surgery S/P shoulder surgery [place] teeth removed Family History Family History Sibling Carcinoma of colon Father Patient's father is Mother Carcinoma of colon Marfans syndrome Social History Social History Years smoked: 40 Smoking status: Current every day smoker Tobacco type: cigarettes Second hand tobacco smoke exposure: No Smoking end date: 03/08/08 Alcohol intake: current Alcohol use details: occasional Substance use: current Substance use type: marijuana Other substance usage details: marijuana gummies for sleep as needed Lack of Transportation: No Lack of Food: Never True Current Housing: I Have Housing Concerned About Future Housing: No Difficulty Paying Gas/Electric Bills: No Difficulty Paying for Meds: No Currently Unemployed: No Education: High School Diploma/GED Difficulty w/ Childcare or Family Care: No Living arrangements: alone Occupation/Education: occupation 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
[2023-11-24] MEDS: LACTATED RINGERS 1,000 ML 150 ML IV CONT (07:17)
[2023-11-24 08:04] VITALS: BP 101/70; PULSE 60; RESP 16; O2SAT 100
[2023-11-24 08:14] VITALS: BP 116/72; PULSE 64; RESP 16; O2SAT 100
[2023-11-24 08:24] VITALS: BP 113/72; PULSE 58; RESP 16; O2SAT 100
--- NOTE | 2023-11-24 10:31 | WPDANESPN ---
Anes - Prog Note Post-Op Date/Time: 11/24/23 10:31 Cardiovascular status: normal Respiratory status: normal Airway patency: baseline Mental status: baseline Post-Op hydration status: normal Vital Signs: Last Vital Signs Temp 36.6 C 11/24/23 07:05 Pulse 58 L 11/24/23 08:24 Resp 16 11/24/23 08:24 BP 113/72 11/24/23 08:24 Pulse Ox 100 11/24/23 08:24 O2 Del Method Room Air 11/24/23 08:24 Pain Score (VAS): 0 I/O: Intake & Output 11/23/23 11/24/23 11/24/23 23:59 07:59 15:59 Intake Total 450 Balance 450 Post-procedural complaints: none Patient Feedback: Patient satisfied with anesthetic care.
== END 2023-11-24 08:32 | disposition home or self-care (01) ==
PROVIDERS: PCP Nurse Practitioner Adult Health; Visit Provider Internal Medicine Gastroenterology
PROC: 0DJD8ZZ Inspection of Lower Intestinal Tract, Via Natural or Artificial Opening Endoscopic (ICD-10-PCS; CPT 45378; principal; 2023-11-24 08:00)
DX: Z12.11 Encounter for screening for malignant neoplasm of colon (principal); Z80.0 Family history of malignant neoplasm of digestive organs; D12.2 Benign neoplasm of ascending colon; K64.8 Other hemorrhoids
CPT/HCPCS: 45385

== ENCOUNTER 2023-11-24 07:00 | Outpatient (NON) | payer OTHER, SELFPAY | END 2023-11-24 07:01 | disposition home or self-care (01) | LOC: ANHLAB 11-25 07:03 | PROVIDERS: PCP Nurse Practitioner Adult Health; Visit Provider Internal Medicine Gastroenterology | DX: Z86.010 Personal history of colon polyps (principal) | CPT/HCPCS: 88305 ==

== ENCOUNTER 2024-02-21 14:26 | Outpatient (CLI) | payer OTHER, SELFPAY ==
--- NOTE | ~2024-02-21 | MM_ITS ---
EXAMINATION: MM screening [facility] BI w rosanna HISTORY: Screening TECHNIQUE: Craniocaudal and mediolateral oblique 3-D tomosynthesis images were obtained and synthetic 2-D images were generated. CAD analysis was submitted and interpreted. COMPARISON: Comparison to multiple prior studies sequentially, with oldest reviewed study dated 11/28. BREAST PARENCHYMAL COMPOSITION: Not dense: There are scattered areas of fibroglandular density. FINDINGS: There is no evidence of suspicious mass, calcification, or architectural distortion to sugg est malignancy in either breast. There has been no suspicious interval change. IMPRESSION: 1. No mammographic evidence of malignancy. 2. Recommend routine screening mammography in one year. BI-RADS Category 1: Negative Reviewed, dictated and finalized at location B. NICAL APPLICATIONS SPECIALIST
== END 2024-02-21 14:27 | disposition home or self-care (01) ==
PROVIDERS: PCP Nurse Practitioner Adult Health; Visit Provider Obstetrics & Gynecology
DX: Z12.31 Encounter for screening mammogram for malignant neoplasm of breast (principal)
CPT/HCPCS: 77063; 77067

== ENCOUNTER 2024-04-07 09:29 | Outpatient (CLI) | payer OTHER, SELFPAY ==
--- OUTSIDE RECORDS SUMMARY | 2024-04-07 09:45 | XMS_ITS | Referral Summary ---
Author Organization [facility] Address [address] [place] [address] Care Team Providers Care Reference And Instruction Librarian Name Role Phone ValerieLenane martínez JOHANNY Primary Care Provider [phone] Venice Ross MD Unavailable [phone] Allergies Active Allergy Reactions Criticality Noted Date Comments Lisinopril Cough Low 01/21/2022 Medications DULERA 200-5 mcg/actuation inhaler 7 Active lisinopril (PRINIVIL,ZESTRI L) 10 mg tablet 7 Active lisinopril (PRINIVIL,ZESTRI L) 10 mg tablet Take 10 mg by mouth daily. 3 8 Active sertraline (ZOLOFT) 50 mg tablet Take 50 mg by mouth daily. 0 8 Active mometasone-formo terol (DULERA 200) 200-5 mcg/actuation inhaler Inhale 2 puffs 2 (two) times a day. Rinse mouth with water after use to reduce aftertaste and incidence of candidiasis. Do not swallow. Active azithromycin (ZITHROMAX) 250 mg tabletIndication s:Lower respiratory infection (e.g., bronchitis, pneumonia, pneumonitis, pulmonitis) Take 2 tablets the first day, then 1 tablet daily for 4 days. 6 tablet 2 Active Active Problems Problem Noted Date Diagnosed Date Palpitations 05/10/2017 Grief reaction 05/10/2017 Social History Tobacco Use Types Packs/Day Years Used Date Smoking Tobacco: Former Smokeless Tobacco: Never Alcohol Use Standard Drinks/Week Comments Yes 0 (1 standard drink = 0.6 oz pur e alcohol) a few drinks weekly Personal Safety Answer Date Recorded Getting School Help Needed Not on file 05/22 Comments Unknown Sex and Gender Information Value Date Recorded Sex Assigned at Not on file Legal Sex Female 2:42 AM MOLD RUNNER Gender Identity Not on file Sexual Orientation Not on file Last Filed Vital Signs Vital Sign Reading Time Taken Comments Blood Pressure 130/86 01/21/2022 11:58 AM MOLD RUNNER Pulse 63 01/21/2022 11:58 AM MOLD RUNNER Temperature 36.7 ??C (98 ??F) 01/21/2022 11:58 AM MOLD RUNNER Respiratory Rate 16 01/21/2022 11:58 AM MOLD RUNNER Oxygen Saturation 99% 01/21/2022 11:58 AM MOLD RUNNER Inhaled Oxygen Concentration - - Weight 89.8 kg (198 lb) 01/21/2022 11:58 AM MOLD RUNNER Height 162.6 cm (5' 4 ) 01/21/2022 11:58 AM MOLD RUNNER Body Mass Index 33.99 01/21/2022 11:58 AM MOLD RUNNER Plan of Treatment Not on file Insurance [facility] PPO Care Teams Reference And Instruction Librarian Relationship Specialty Start Date End Date Leanne Ruiz NP PCP - General Nurse Practitioner 05/10/17 Venice Ross MD [address] [address] 05/10/17
--- OUTSIDE RECORDS SUMMARY | 2024-04-07 09:45 | XMS_ITS | Clinical Summary ---
Author Organization [facility] Address [address] [place] [address] Care Team Providers Care Brim Welt Sewing Machine Operator Name Role Phone Venice Ross MD Primary Care Provider Source Comments [facility],non-owned Affiliates and Associated Physician Practices is amultiple site organization consisting of ambulatory clinics and hospital sitesin [place], [place] and [place]. This disclosure is being madepursuant to the Care Everywhere program and may not contain all information available regarding this patient. Last updated 17.[facility] Social History Tobacco Use Types Packs/Day Years Used Date Smoking Tobacco: Never Assessed Sex and Gender Information Value Date Recorded Sex Assigned at Not on file Gender Identity Not on file Sexual Orientation Not on file Plan of Treatment Health Maintenance Due Date Last Done Comments COLOGUARD (AGES 45-75) - COL ON CA SCREENING 1965 COLON MONITORING 1965 COLONOSCOPY - COLON CA SCREENING 1965 CT COLONOGRAPHY - COLON CA SCREENING 1965 Colorectal Cancer Screening 1965 FIT - COLON CA SCREENING 1965 FLEX SIG - COLON CA SCREENING 1965 LIPID TESTING 1965 MAMMOGRAM 1965 PAP SMEAR 1965 HIV SCREENING 02/27/1980 HEPATITIS C SCREENING 02/22/1983 DTAP/TDAP/TD VACCINES (1 - Tdap) 02/27/1984 HEPATITIS B VACCINE (1 of 3 - 19+ 3-dose series) 02/27/1984 PNEUMOCOCCAL VACCINE 50+ (1 of 1 - PCV) 2015 ZOSTER VACCINE (1 of 2) 2015 COVID-19 VACCINE (2023-2 5 season) 2023 INFLUENZA VACCINE (#1) 2023 DEPRESSION SCREENING 03/08/2024 HIB VACCINE Aged Out No longer eligi ble based on patient's age to complete this topic HPV VACCINE Aged Out No longer eligi ble based on patient's age to complete this topic MENINGOCOCCAL (Group B) VACCINE Aged Out No longer eligible based on patient's age to complete this topic MENINGOCOCCAL VACCINE Aged Out No france alesha eligible based on patient's age to complete this topic PNEUMOCOCCAL VACCINE Aged Out No long er eligible based on patient's age to complete this topic Care Teams Brim Welt Sewing Machine Operator Relationship Specialty Start Date End Date Venice Ross MD [address] [place] [id number] PCP - General 12/02/18
--- OUTSIDE RECORDS SUMMARY | 2024-04-07 09:45 | XMS_ITS | Clinical Summary ---
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 Gender Identity Not on file Sexual Orientation Not on file Plan of Treatment Health Maintenance Due Date Last Done Comments Hepatitis C Virus (HCV) Screening 1965 TdaP Immunization 1965 Hepatitis B Immunization (1 of 3 - 19+ 3-dose series) 02/27/1984 Pap Smear 1986 Cervical Cancer Screening (CCS) 1995 HPV/Cotest 1995 Colonoscopy 2010 Colorectal Cancer Screening 2010 Cologuard 2015 Immunochemical Fecal Occult Blood 2015 Mammogram 2015 Pneumococcal Immunization (50+ years) (1 of 1 - PCV) 2015 Zoster Immunization (1 of 2) 2015 Influenza Immunization (#1) 11/07/202301/06, 12/21/2019, 12/27/2018, Additional history exists SARS-COV-2 Immunization ( season) 2023 03/12/2021, 05/16/2020, 04/18/2020 Respiratory Syncytial Virus (RSV) Immunization (Adult) (1 - 1-dose 75+ series) 02/27/2040 Meningococcal Immunization (ACWY) Aged Out No longer eligible based on patient's age to complete this topic Pneumococcal Immunization Combined Aged Out No longer eligible based on patient's age to complete this topic Rotavirus Immunization Aged Out No lo nger eligible based on patient's age to complete this topic
--- OUTSIDE RECORDS SUMMARY | 2024-04-07 09:45 | XMS_ITS | Clinical Summary ---
Author Organization [facility] Address [address] [place] [address] Care Team Providers Care Lead Caster Helper Name Role Phone ValerieLeanne martínez JOHANNY Primary Care Provider [phone] Venice Ross MD Unavailable [phone] Allergies Active Allergy Reactions Criticality Noted Date [...] Diagnosed Date Palpitations 05/10/2017 Grief reaction 05/10/2017 Surgical History Surgery Date Site/Laterality Comments SHOULDER SURGERY 03/08/2012 - 03/07/2013 rotator cuff WISDOM TOOTH EXTRACTION 03/08/1993 - 03/07/1994 DILATION AND CURETTAGE OF UTERUS 03/08/1986 - 03/07/1987 ROTATOR CUFF REPAIR DILATION AND CURETTAGE OF UTERUS WISDOM TOOTH EXTRACTION Medical History Medical History Date Comments Hypertension Overweight Rosacea Anxiety Depression Asthma Basal cell carcinoma Family History Medical History Relation Name Comments Colon cancer Brother Marfan syndrome Father Hypertension Mother Relation Name Status Comments Brother Alive Father (Age 47) Mother Alive Social History Tobacco Use Types Packs/Day Years [...] on file Legal Sex Female 2:42 AM CREDIT RISK MODELER Gender Identity Not on file Sexual Orientation Not on file Obstetrics History Last Filed Vital Signs Vital Sign Reading Time Taken Comments Blood Pressure 130/86 01/21/2022 11:58 AM CREDIT RISK MODELER Pulse 63 01/21/2022 11:58 AM CREDIT RISK MODELER Temperature 36.7 ??C (98 ??F) 01/21/2022 11:58 AM CREDIT RISK MODELER Respiratory Rate 16 01/21/2022 11:58 AM CREDIT RISK MODELER Oxygen Saturation 99% 01/21/2022 11:58 AM CREDIT RISK MODELER Inhaled Oxygen Concentration - - Weight 89.8 kg (198 lb) 01/21/2022 11:58 AM CREDIT RISK MODELER Height 162.6 cm (5' 4 ) 01/21/2022 11:58 AM CREDIT RISK MODELER Body Mass Index 33.99 01/21/2022 11:58 AM CREDIT RISK MODELER Plan of Treatment Health Maintenance Due Date Last Done Comments Breast Cancer Screening-Mammogram 1965 Cervical Cancer Screening 1965 Colon Cancer Screening-Colonoscopy 1965 Depression Screening 1965 Hepatitis C Screening 1965 DTaP/Tdap/Td Vaccine (1 - Tdap) 02/27/1976 Hepatitis B Screening 1983 Regular Well Visit/Exam 18-64 1983 Zoster Vaccine (1 of 2) 2015 Covid-19 Vaccine ( season) 2023 03/12/2021, 05/16/2020, 04/18/2020 Influenza Vaccine (#1) 2023 , 12/21/2019, 12/27/2018, Additional history exists Pneumococcal vaccine <65 Aged Out No longer eligible based on patient's age to complete this topic [facility] Care Teams Lead Caster Helper Relationship Specialty Start Date End Date Leanne Ruiz NP PCP - General Nurse Practitioner 05/10/17 Venice Ross MD [address] [address] 05/10/17
--- OUTSIDE RECORDS SUMMARY | 2024-04-07 09:45 | XMS_ITS | Clinical Summary ---
Author Organization [facility] Address [address] [place] [address]. [place], [place] [address] [place] [address] Care Team Providers Care Speeder Operator Name Role Phone Leanne Ruiz NP Primary Care Provider [phone] Allergies No known active allergies Medications losartan 50 MG tablet Take 50 mg by mouth daily. Active estradiol 1 MG tablet Take 1 mg by mouth daily. Active fluticasone-salm eterol 500-50 MCG/DOSE inhaler Inhale 1 puff into the lungs 2 (two) times daily. Active Social History Tobacco Use Types Packs/Day Years Used Date Smoking Tobacco: Every Day Cigarettes Smokeless Tobacco: Never Alcohol Use Standard Drinks/Week Comments Yes 0 (1 standard drink = 0.6 oz pur e alcohol) social Comments No Sex and Gender Information Value Date Recorded Sex Assigned at Not on file Legal Sex Female 1:49 PM CDT Gender Identity Not on file Sexual Orientation Not on file Last Filed Vital Signs Vital Sign Reading Time Taken Comments Blood Pressure 131/85 01/10/2021 2:03 PM CDT Pulse 72 01/10/2021 2:03 PM CDT Temperature 36.2 ??C (97.2 ??F) 01/10/2021 2:03 PM CD T Respiratory Rate 16 01/10/2021 2:03 PM CDT Oxygen Saturation 100% 01/10/2021 2:03 PM CDT Inhaled Oxygen Concentration - - Weight 88.5 kg (195 lb) 01/10/2021 2:03 PM CDT Height 162.6 cm (5' 4 ) 01/10/2021 2:03 PM CDT Body Mass Index 33.47 01/10/2021 2:03 PM CDT Plan of Treatment Health Maintenance Due Date Last Done Comments Colorectal Cancer Screening Colonoscopy (10 Years) 1965 Annual Physical 02/27/1968 Pneumococcal Vaccine: Pediatrics (0 to 5 Years) and At-Risk Patients (6 to 64 Years) (1 of 2 - PCV) 1971 Hepatitis C 1983 DTaP, Tdap and Td Vaccines (1 - Tdap) 02/27/1984 Hepatitis B Vaccines (1 of 3 - 19+ 3-dose series) 02/27/1984 Mammogram Screening 2005 Zoster Vaccines (1 of 2) 2015 COVID-19 Vaccine (3 - 2023- season) 2023 05/16/2020, 04/18/2020 Influenza Adult (#1) 2023 12/21/2019, 12/27/2018, 01/21/2017, Additional history exists Meningococcal B Vaccine Aged Out No l onger eligible based on patient's age to complete this topic Meningococcal Vaccine Aged Out No france alesha eligible based on patient's age to complete this topic RSV Immunizations Under 20 Months Aged Out No longer eligible based on patient's age to complete this topic Insurance [employer] Care Teams Speeder Operator Relationship Specialty Start Date End Date Leanne Ruiz NP [address] [place] [id number] PCP - General NURSE PRACTITIONER 01/10/21
--- OUTSIDE RECORDS SUMMARY | 2024-04-07 09:45 | XMS_ITS | Encounter Summary ---
Author Organization [facility] Address [address] [place] [address] Care Team Providers Care Change Over Name Role Phone Venice Ross MD Primary Care Provider Encounter Details Date Type Department Care Team (Late st Contact Info) Description 11/20/2022 Lab Requisition [facility] - DermPath Lab [address] [facility], [place] [address] Cooper Burnham MD [facility] DERMATOLOGY [address] [place] [phone] Neoplasm of uncertain behavior of skin Social History Tobacco Use Types Packs/Day Years Used Date Smoking Tobacco: Never Assessed Sex and Gender Information Value Date Recorded Sex Assigned at Not on file Gender Identity Not on file Sexual Orientation Not on file documented as of this encounter Plan of Treatment Not on file documented as of this encounter Procedures Procedure Name Priority Date/Time Associated Diagnosis Comments DERMATOPATHOLOGY Routine 11/20/2022 3:33 AM CDT Neoplasm of uncertain behavior of skin documented in this encounter Results * DERMATOPATHOLOGY (11/20/2022 3:33 AM CDT) Case Report Dermatopathology Report ? Case: [id number] ? Authorizing Provider: ??Cooper Burnham MD ? Collected: ? 11/20/2022 03:33 AM ? Ordering Location: ? [facility] DermPath Lab ? Received: ?11/23/2022 01:09 PM ? Pathologist: ? Chrissie Daily MD ? Specimen: ?Skin, right nasal ala ? 3 1:18 PM CDT DERMATOPATHOLOGY LABORATORY Final Diagnosis Specimen A. SKIN, right nasal ala: BASAL CELL CARCINOMA, INFILTRATIVE PATTERN (C44.311) 3 1:18 PM CDT DERMATOPATHOLOGY LABORATORY Clinical History Basal Cell Carcinoma 3 1:18 PM CDT DERMATOPATHOLOGY LABORATORY Gross Description Specimen A: Received is one formalin filled container labeled with the patient's name and designated right nasal ala. The specimen consists of a shave biopsy measuring 4x4x1 mm. Jar 0. 3 1:18 PM CDT DERMATOPATHOLOGY LABORATORY Microscopic Description Specimen A. SKIN, right nasal ala: Within the dermis there are nodular aggregates of basaloid cells associated with fibromyxoid stroma and epithelial-stromal clefts. At the advancing margin of the neoplasm, there are smaller angulated nests that infiltrate the dermis. 3 1:18 PM CDT DERMATOPATHOLOGY LABORATORY Disclaimer An external and internal positive and negative controls are appropriate for the histochemical, immunohistochemical and immunofluorescence stain(s) in this case (if any), except where stated explicitly. The performance characteristics of the stain(s) cited in this report were developed and its performance characteristic determined by the Dermatopathology Laboratory at [facility], directed by Dr. Alena Beaver. These tests need not be, and therefore are not, approved by the [place] Food and Drug Administration. The tests are used for clinical purposes. Billing Codes Specimen Charges Stain Charges 18351 1 3 1:18 PM CDT DERMATOPATHOLOGY LABORATORY Embedded Images 3 1:18 PM CDT DERMATOPATHOLOGY LABORATORY Pathology/Cytolo gy TISSUE SPECIMEN FROM SKIN / Unknown 11/20/2022 3:33 AM CDT 11/23/2022 1:09 PM CDT Cooepr Burnham MD LAB - PATHOLOGY/CYTO LOGY ORDERABLES DERMATOPATHOLOGY LABORATORY [facility] - Department of Dermatology [facility] [address] [place] [address], [address] Floor [address] [phone] documented in this encounter Visit Diagnoses Diagnosis Neoplasm of uncertain behavior of skin documented in this encounter Care Teams Change Over Relationship Specialty Start Date End Date Venice Ross MD [address] [place] [phone] PCP - General 12/02/18 documented as of this encounter
--- OUTSIDE RECORDS SUMMARY | 2024-04-07 09:45 | XMS_ITS | Patient Health Summary ---
Author Organization [facility] Address [address] [place] [address] Care Team Providers Care Educational Assistant Teacher Name Role Phone Venice Ross MD Primary Care Provider Note from [facility],non-owned Affiliates and Associated Physician Practices is amultiple site organization consisting of ambulatory clinics and hospital sitesin [place], [place], [place] and [place]. This disclosure is being madepursuant to the Care Everywhere program and may not contain all information available regarding this patient. Last updated 17.[facility] Social History Tobacco Use Types Packs/Day Years Used Date Smoking Tobacco: Never Assessed Sex and Gender Information Value Date Recorded Sex Assigned at Not on file Gender Identity Not on file Sexual Orientation Not on file Procedures * DERMATOPATHOLOGY(Performed 11/20/2022) Performed for Neoplasm of uncertain behavior of skin Results * DERMATOPATHOLOGY (11/20/2022 3:33 AM CDT) Case Report Dermatopathology Report ? Case: [id number] ? Authorizing Provider: ??Cooper Burnham MD ? Collected: ? 11/20/2022 03:33 AM ? Ordering Location: ? [facility] ? Received: ?11/23/2022 01:09 PM ? Pathologist: ? Chrissie Daily MD ? Specimen: ?Skin, right nasal ala ? 3 1:18 PM CDT DERMATOPATHOLOGY LABORATORY Final Diagnosis Specimen A. SKIN, right nasal ala: BASAL CELL CARCINOMA, INFILTRATIVE PATTERN (C44.311) 3 1:18 PM T DERMATOPATHOLOGY LABORATORY Clinical History Basal Cell Carcinoma 3 1:18 PM CDT DERMATOPATHOLOGY LABORATORY Gross Description Specimen A: Received is one formalin filled container labeled with the patient's name and designated right nasal ala. The specimen consists of a shave biopsy measuring 4x4x1 mm. Jar 0. 3 1:18 PM T DERMATOPATHOLOGY LABORATORY Microscopic Description Specimen A. SKIN, right nasal ala: Within the dermis there are nodular aggregates of basaloid cells associated with fibromyxoid stroma and epithelial-stromal clefts. At the advancing margin of the neoplasm, there are smaller angulated nests that infiltrate the dermis. 3 1:18 PM T DERMATOPATHOLOGY LABORATORY Disclaimer An external and internal positive and negative controls are appropriate for the histochemical, immunohistochemical and immunofluorescence stain(s) in this case (if any), except where stated explicitly. The performance characteristics of the stain(s) cited in this report were developed and its performance characteristic determined by the Dermatopathology Laboratory at [facility], directed by Dr. Alena Beaver. These tests need not be, and therefore are not, approved by the [place] Food and Drug Administration. The tests are used for clinical purposes. Billing Codes Specimen Charges Stain Charges 63490 1 3 1:18 PM CDT DERMATOPATHOLOGY LABORATORY Embedded Images 3 1:18 PM CDT DERMATOPATHOLOGY LABORATORY Pathology/Cytolo gy TISSUE SPECIMEN FROM SKIN / Unknown 11/20/2022 3:33 AM CDT 11/23/2022 1:09 PM CDT Cooper Burnham MD LAB - PATHOLOGY/CYTO LOGY ORDERABLES DERMATOPATHOLOGY LABORATORY [facility] - Department of Dermatology [facility] [address] [place] [address], [address] Floor [address] [phone] Care Teams Educational Assistant Teacher Relationship Specialty Start Date End Date Venice Ross MD [address] [place] [phone] PCP - General 12/02/18
--- OUTSIDE RECORDS SUMMARY | 2024-04-07 09:45 | XMS_ITS | Referral Summary ---
Author Organization [facility] Address [address] [place] [address] Care Team Providers Care Woodwind Reeds Cutter Name Role Phone Venice Ross MD Primary Care Provider Source Comments [facility],non-owned Affiliates and Associated Physician Practices is amultiple site organization consisting of ambulatory clinics and hospital sitesin [place], [place], [place] and [place]. This disclosure is being madepursuant to the Care Everywhere program and may not contain all information available regarding this patient. Last updated 17.[facility] Social History Tobacco Use Types Packs/Day Years Used Date Smoking Tobacco: Never Assessed Sex and Gender Information Value Date Recorded Sex Assigned at Not on file Gender Identity Not on file Sexual Orientation Not on file Plan of Treatment Not on file Care Teams Woodwind Reeds Cutter Relationship Specialty Start Date End Date Venice Ross MD [address] [facility] [address] [place] [phone] PCP - General 12/02/18
[2024-04-07 13:33] LABS: Basophils Percent Auto 0.6 % (0.2-1.2); Eosinophils Absolute Auto 0.3 K/mm3 (0-0.3); Eosinophils Percent Auto 5.6 % (0-4.4); Hematocrit 38.9 % (37.0-47.0); Hemoglobin 12.9 g/dL (12.0-15.0); Immature Granulocyte Absolute 0.02 K/mm3 (0.00-0.031); Immature Granulocyte Percent A 0.4 % (0-0.5); Lymphocytes Absolute Auto 1.98 K/mm3 (0.9-3.2); Lymphocytes Percent Auto 36.7 % (18.3-44.2); Mean Corpuscular HGB Conc 33.2 g/dl (32-36); Mean Corpuscular Hemoglobin 31.5 pg (26-34); Mean Corpuscular Volume 94.9 fl (80-100); Monocytes Absolute Auto 0.4 K/mm3 (0.1-0.6); Monocytes Percent Auto 6.7 % (2.6-8.5); Neutrophils Absolute Auto 2.7 K/mm3 (1.3-6.7); Platelet Count Result 225 k/mm3 (150-375); Red Cell Distribution Width 12.2 % (11.5-14.5); White Blood Count 5.4 K/mm3 (4.5-10.0)
[2024-04-07 13:34] LABS: Alanine Aminotransferase 29 U/L (6-35); Albumin Level 3.9 g/dL (3.5-5.1); Alkaline Phosphatase 55 U/L (38-126); Anion Gap 9 mmol/L (4-12); Aspartate Amino Transferase 37 U/L (14-36); Bilirubin,Total 0.6 mg/dL (0.2-1.3); Blood Urea Nitrogen 12 mg/dL (7-17); Calcium 9.8 mg/dL (8.4-10.2); Carbon Dioxide 24 mmol/L (22-30); Chloride 105 mmol/L (98-107); Cholesterol 149 mg/dL (0-200); Estimated Glomerular Filt Rate > 60; Glucose 76 mg/dL (65-110); HDL Direct 69 mg/dL; Potassium 4.2 mmol/L (3.4-5.0); Sodium 138 mmol/L (137-145); Triglycerides 81 mg/dL (<150)
[2024-04-07 13:45] LABS: LDL Cholesterol Direct 72 mg/dL
[2024-04-07 13:56] LABS: Vitamin D 25 Hydroxy 38.8 ng/mL
[2024-04-07 14:10] LABS: Thyroid Stimulating Hormone Reflex 0.227 uIU/mL (0.465-4.68)
[2024-04-07 15:48] LABS: Free T4 Free Thyroxine Reflex 0.99 ng/dL (0.78-2.19)
[2024-04-07 16:37] LABS: Total Triiodothyronine (T3) 1.33 NG/ML (0.97-1.69)
== END 2024-04-07 09:30 | disposition home or self-care (01) ==
LOC: ANHGOSHLAB 09:29
PROVIDERS: PCP Nurse Practitioner Adult Health; Visit Provider Nurse Practitioner Adult Health
DX: I10 Essential (primary) hypertension (principal); R53.83 Other fatigue
CPT/HCPCS: 36415; 80053; 80061; 82306; 84439; 84443; 84480; 85025

== ENCOUNTER 2024-10-18 08:14 | Outpatient (CLI) | payer OTHER, SELFPAY ==
--- OUTSIDE RECORDS SUMMARY | 2024-10-18 08:17 | XMS_ITS | Clinical Summary ---
Author Organization [facility] Address [address] [place] [phone] Care Team Providers Care Fly Worker Name Role Phone Unavailable Primary Care Provider Unavailabl e Immunizations Immunization Administration Dates Next Due Covid-19, Mrna, Lnp-s, PF, 5 0 mcg/0.25 mL dose (Moderna) 03/12/2021 Social History Tobacco Use Types Packs/Day Years Used Date Smoking Tobacco: Never Assessed Comments Unknown Sex and Gender Information Value Date Recorded Sex Assigned at Not on file Legal Sex Female 1:47 PM TOOLING MECHANIC Gender Identity Not on file Sexual Orientation Not on file Plan of Treatment Health Maintenance Due Date Last Done Comments Hepatitis C Virus (HCV) Screening 1965 TdaP Immunization 1965 Hepatitis B Immunization (1 of 3 - 19+ 3-dose series) 02/27/1984 Pap Smear 1986 Cervical Cancer Screening (CCS) 1995 HPV/Cotest 1995 Cologuard 2010 Colonoscopy 2010 Colorectal Cancer Screening 2010 Immunochemical Fecal Occult Blood 2010 Pneumococcal Immunization (50+ years) (1 of 1 - PCV) 2015 Zoster Immunization (1 of 2) 2015 SARS-COV-2 Immunization ( season) 2023 03/12/2021, 05/16/2020, 04/18/2020 Influenza Immunization (#1) 11/06/202401/06, 12/21/2019, 12/27/2018, Additional history exists Respiratory Syncytial Virus (RSV) Immunization (Adult) (1 - 1-dose 75+ series) 02/27/2040 Human Papillomavirus (HPV) Immunization Aged Out No longer eligible based on patient's age to complete this topic Meningococcal Immunization (ACWY) Aged Out No longer eligible based on patient's age to complete this topic Rotavirus Immunization Aged Out No lo nger eligible based on patient's age to complete this topic
--- OUTSIDE RECORDS SUMMARY | 2024-10-18 08:17 | XMS_ITS | Clinical Summary ---
Author Organization [facility] Address [address] [place] [address] Care Team Providers Care Pyrometer Operator Name Role Phone ValerieLeanne martínez JOHANNY Primary Care Provider [phone] Venice Ross MD Unavailable [phone] Allergies Active Allergy Reactions Criticality Noted Date [...] on file Legal Sex Female 2:42 AM TOOL MECHANIC Gender Identity Not on file Sexual Orientation Not on file Obstetrics History Last Filed Vital Signs Vital Sign Reading Time Taken Comments Blood Pressure 130/86 01/21/2022 11:58 AM TOOL MECHANIC Pulse 63 01/21/2022 11:58 AM TOOL MECHANIC Temperature 36.7 C (98 F) 01/21/2022 11:58 AM TOOL MECHANIC Respiratory Rate 16 01/21/2022 11:58 AM TOOL MECHANIC Oxygen Saturation 99% 01/21/2022 11:58 AM TOOL MECHANIC Inhaled Oxygen Concentration - - Weight 89.8 kg (198 lb) 01/21/2022 11:58 AM TOOL MECHANIC Height 162.6 cm (5' 4) 01/21/2022 11:58 AM TOOL MECHANIC Body Mass Index 33.99 01/21/2022 11:58 AM TOOL MECHANIC Plan of Treatment Health Maintenance Due Date Last Done Comments Breast Cancer Screening-Mammogram 1965 Cervical Cancer Screening 1965 Colon Cancer Screening-Colonoscopy 1965 Depression Screening 1965 Hepatitis C Screening 1965 DTaP/Tdap/Td Vaccine (1 - Tdap) 02/27/1976 Hepatitis B Screening 1983 Regular Well Visit/Exam 18-64 1983 Zoster Vaccine (1 of 2) 2015 Covid-19 Vaccine ( season) 2023 03/12/2021, 05/16/2020, 04/18/2020 Influenza Vaccine (#1) 2024 , 12/21/2019, 12/27/2018, Additional history exists Pneumococcal vaccine <65 Aged Out No longer eligible based on patient's age to complete this topic Insurance [facility] PPO Care Teams Pyrometer Operator Relationship Specialty Start Date End Date Leanne Ruiz NP PCP - General Nurse Practitioner 05/10/17 Venice Ross MD [address] [address] 05/10/17
--- OUTSIDE RECORDS SUMMARY | 2024-10-18 08:17 | XMS_ITS | Encounter Summary ---
Author Organization [facility] Address [address] [place] [address] Care Team Providers Care Shotgun Shell Reprinting Unit Operator Name Role Phone Venice Ross MD Primary Care Provider Encounter Details Date Type Department Care Team (Late st Contact Info) Description 11/20/2022 Lab Requisition [facility] - [facility] Lab [address] [facility], [place] [phone] Cooper Burnham MD [facility] DERMATOLOGY [address] [place] [phone] Neoplasm of uncertain behavior of skin Social History Tobacco Use Types Packs/Day Years Used Date Smoking Tobacco: Never Assessed Comments Unknown Sex and Gender Information Value Date Recorded Sex Assigned at Not on file Legal Sex Female 8:42 AM CDT Gender Identity Not on file Sexual Orientation Not on file documented as of this encounter Plan of Treatment Not on file documented as of this encounter Procedures Procedure Name Priority Date/Time Associated Diagnosis Comments DERMATOPATHOLOGY Routine 11/20/2022 3:33 AM CDT Neoplasm of uncertain behavior of skin documented in this encounter Results * DERMATOPATHOLOGY (11/20/2022 3:33 AM CDT) Case Report Dermatopathology Report Case: [id number] Authorizing Provider: Cooper Burnham MD Collected: 11/20/2022 03:33 AM Ordering Location: [facility] DermPath Lab Received: 11/23/2022 01:09 PM Pathologist: Chrissie Daily MD Specimen: Skin, right nasal ala 1:18 PM CDT DERMATOPATHOLOGY LABORATORY Final Diagnosis Specimen A. SKIN, right nasal ala: BASAL CELL CARCINOMA, INFILTRATIVE PATTERN (C44.311) 3 1:18 PM CDT DERMATOPATHOLOGY LABORATORY at 1318 CDT Clinical History Basal Cell Carcinoma 3 1:18 [...] smaller angulated nests that infiltrate the dermis. 1:18 PM CDT DERMATOPATHOLOGY LABORATORY Disclaimer An external and internal positive and negative controls are appropriate for the histochemical, immunohistochemical and immunofluorescence stain(s) in this case (if any), except where stated explicitly. The performance characteristics of the stain(s) cited in this report were developed and its performance characteristic determined by the Dermatopathology Laboratory at [facility], directed by Dr. Alena Beaver. These tests need not be, and therefore are not, approved by the [place] Food and Drug Administration. The tests are used for clinical purposes. Billing Codes Specimen Charges Stain Charges 59506 1 3 1:18 PM CDT DERMATOPATHOLOGY LABORATORY Embedded Images 3 1:18 PM CDT DERMATOPATHOLOGY LABORATORY Pathology/Cytolo gy TISSUE SPECIMEN FROM SKIN / Unknown 11/20/2022 3:33 AM CDT 11/23/2022 1:09 PM CDT Cooper Burnham MD LAB - PATHOLOGY/CYTOLOGY ORDE ADIS Final Result DERMATOPATHOLOGY LABORATORY [facility] - Department of Dermatology [address], [address] [phone] documented in this encounter Visit Diagnoses Diagnosis Neoplasm of uncertain behavior of skin documented in this encounter Care Teams Shotgun Shell Reprinting Unit Operator Relationship Specialty Start Date End Date Venice Ross MD [address] [place], [place] [phone] PCP - General 12/02/18 documented as of this encounter
--- OUTSIDE RECORDS SUMMARY | 2024-10-18 08:17 | XMS_ITS | Clinical Summary ---
Author Organization [facility] Address [address] [place] [address] Care Team Providers Care Strategic Marketing Manager Name Role Phone Venice Ross MD Primary Care Provider Source Comments [facility],non-owned Affiliates and Associated Physician Practices is amultiple site organization consisting of ambulatory clinics and hospital sitesin [place], [place], [place] and [place]. This disclosure is being madepursuant to the Care Everywhere program and may not contain all information available regarding this patient. Last updated 17.[facility] Social History Tobacco Use Types Packs/Day Years [...] SCREENING 1965 LIPID TESTING 1965 MAMMOGRAM 1965 HIV SCREENING 02/27/1980 HEPATITIS C SCREENING 02/22/1983 DTAP/TDAP/TD VACCINES (1 - Tdap) 02/27/1984 HEPATITIS B VACCINE (1 of 3 - 19+ 3-dose series) 02/27/1984 PAP SMEAR 1986 PNEUMOCOCCAL VACCINE 50+ (1 of 1 - PCV) 2015 ZOSTER VACCINE (1 of 2) 2015 COVID-19 VACCINE ( - 2023-2 5 season) 2023 DEPRESSION SCREENING 03/08/2024 INFLUENZA VACCINE (#1) 2024 HIB VACCINE Aged Out No longer eligi ble based on patient's age to complete this topic HPV VACCINE Aged Out No longer eligi ble based on patient's age to complete this topic MENINGOCOCCAL (Group B) VACC INE SHARED DECISION-MAKING Aged Out No longer eligibl e based on patient's age to complete this topic MENINGOCOCCAL GROUPS A/C/Y/W VACCINE Aged Out No longer eligible b ased on patient's age to complete this topic Insurance [employer] Care Teams Strategic Marketing Manager Relationship Specialty Start Date End Date Venice Ross MD [address] [place] [phone] PCP - General 12/02/18
--- OUTSIDE RECORDS SUMMARY | 2024-10-18 08:17 | XMS_ITS | Clinical Summary ---
Author Organization [facility] Address [address] [place] [address] Care Team Providers Care Feed Research Technician Name Role Phone ValerieLeanne martínez JOHANNY Primary Care Provider Allergies No known active allergies Medications losartan [...] 72 01/10/2021 2:03 PM CDT Temperature 36.2 C (97.2 F) 01/10/2021 2:03 PM CDT Respiratory Rate 16 01/10/2021 2:03 PM CDT Oxygen Saturation 100% 01/10/2021 2:03 PM CDT Inhaled Oxygen Concentration - - Weight 88.5 kg (195 lb) 01/10/2021 2:03 PM CDT Height 162.6 cm (5' 4) 01/10/2021 2:03 PM CDT Body Mass Index 33.47 01/10/2021 2:03 PM CDT Plan of Treatment Health Maintenance Due Date Last Done Comments Colorectal Cancer Screening Colonoscopy (10 Years) 1965 Annual Physical 02/27/1968 Hepatitis C 1983 DTaP, Tdap and Td Vaccines ( 1 - Tdap) 02/27/1984 Pneumococcal Vaccine: 50+ Years (1 of 2 - PCV) 02/27/1984 Mammogram Screening 2005 Zoster Vaccines (1 of 2) 2015 COVID-19 Vaccine (3 - 2023-2 5 season) 2023 05/16/2020, 04/18/2020 Meningococcal B Vaccine Aged Out No l onger eligible based on patient's age to complete this topic Meningococcal Vaccine Aged Out No france alesha eligible based on patient's age to complete this topic RSV Immunizations Under 20 Months Aged Out No longer eligible b ased on patient's age to complete this topic Insurance [employer] Care Teams Feed Research Technician Relationship Specialty Start Date End Date Leanne Ruiz NP [address] [place] [id number] PCP - General NURSE PRACTITIONER 01/10/21
[2024-10-18 13:37] LABS: Alanine Aminotransferase 23 U/L (6-35); Albumin Level 3.9 g/dL (3.5-5.1); Alkaline Phosphatase 49 U/L (38-126); Anion Gap 4 mmol/L (4-12); Aspartate Amino Transferase 56 U/L (14-36); Bilirubin,Total 0.3 mg/dL (0.2-1.3); Blood Urea Nitrogen 15 mg/dL (7-17); Calcium 9.7 mg/dL (8.4-10.2); Carbon Dioxide 25 mmol/L (22-30); Chloride 108 mmol/L (98-107); Cholesterol 145 mg/dL (0-200); Estimated Glomerular Filt Rate > 60; Glucose 66 mg/dL (65-110); HDL Direct 64 mg/dL; Potassium 4.4 mmol/L (3.4-5.0); Sodium 137 mmol/L (137-145); Total Protein 6.8 g/dL (6.3-8.2); Triglycerides 90 mg/dL (<150)
[2024-10-18 14:02] LABS: Thyroid Stimulating Hormone Reflex 1.710 uIU/mL (0.465-4.68)
== END 2024-10-18 08:15 | disposition home or self-care (01) ==
LOC: ANHGOSHLAB 08:14
PROVIDERS: PCP Nurse Practitioner Adult Health; Visit Provider Nurse Practitioner Adult Health
DX: I10 Essential (primary) hypertension (principal)
CPT/HCPCS: 36415; 80053; 80061; 84443

== ENCOUNTER 2024-12-11 10:28 | Outpatient (CLI) | payer OTHER, SELFPAY ==
--- OUTSIDE RECORDS SUMMARY | 2024-12-11 11:49 | XMS_ITS | Clinical Summary ---
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
--- OUTSIDE RECORDS SUMMARY | 2024-12-11 11:49 | XMS_ITS | Clinical Summary ---
Author Organization [facility] Address [address] [place] [address] Care Team Providers Care Lpn Per Diem Name Role Phone ValerieLeanne martínez JOHANNY Primary Care Provider [phone] Venice Ross MD Unavailable [phone] Allergies Active Allergy Reactions Criticality Noted Date [...] on file Legal Sex Female 2:42 AM TAN ROOM SUPERVISOR Gender Identity Not on file Sexual Orientation Not on file Obstetrics History Last Filed Vital Signs Vital Sign Reading Time Taken Comments Blood Pressure 130/86 01/21/2022 11:58 AM TAN ROOM SUPERVISOR Pulse 63 01/21/2022 11:58 AM TAN ROOM SUPERVISOR Temperature 36.7 C (98 F) 01/21/2022 11:58 AM TAN ROOM SUPERVISOR Respiratory Rate 16 01/21/2022 11:58 AM TAN ROOM SUPERVISOR Oxygen Saturation 99% 01/21/2022 11:58 AM TAN ROOM SUPERVISOR Inhaled Oxygen Concentration - - Weight 89.8 kg (198 lb) 01/21/2022 11:58 AM TAN ROOM SUPERVISOR Height 162.6 cm (5' 4) 01/21/2022 11:58 AM TAN ROOM SUPERVISOR Body Mass Index 33.99 01/21/2022 11:58 AM TAN ROOM SUPERVISOR Plan of Treatment Health Maintenance Due Date Last Done Comments Breast Cancer Screening-Mammogram 1965 Cervical Cancer Screening 1965 Colon Cancer Screening-Colonoscopy 1965 Depression Screening 1965 Hepatitis C Screening 1965 DTaP/Tdap/Td Vaccine (1 - Tdap) 02/27/1976 Hepatitis B Screening 1983 Regular Well Visit/Exam 18-64 1983 Zoster Vaccine (1 of 2) 2015 Covid-19 Vaccine ( season) 2024 03/12/2021, 05/16/2020, 04/18/2020 Influenza Vaccine (#1) 2024 , 12/21/2019, 12/27/2018, Additional history exists Pneumococcal vaccine <65 Aged Out No longer eligible based on patient's age to complete this topic Insurance [facility]ED [facility] [place] PPO Care Teams Lpn Per Diem Relationship Specialty Start Date End Date Leanne Ruiz NP PCP - General Nurse Practitioner 05/10/17 Venice Ross MD [address] [address] 05/10/17
--- OUTSIDE RECORDS SUMMARY | 2024-12-11 11:49 | XMS_ITS | Clinical Summary ---
Author Organization [facility] Address [address] [place] [address] Care Team Providers Care Communications Technologist Name Role Phone ValerieLeanne martínez JOHANNY Primary Care Provider [phone] Allergies No known active allergies Medications losartan [...] and Td Vaccines (1 - Tdap) 02/27/1984 Pneumococcal Vaccine: 50+ Years (1 of 2 - PCV) 02/27/1984 Mammogram Screening 2005 Zoster Vaccines (1 of 2) 2015 COVID-19 Vaccine (3 - season) 2024 05/16/2020, 04/18/2020 Influenza Adult (#1) 2024 12/21/2019, 12/27/2018, 01/21/2017, Additional history exists Meningococcal B Vaccine Aged Out No l onger eligible based on patient's age to complete this topic Meningococcal Vaccine Aged Out No france alesha eligible based on patient's age to complete this topic RSV Immunizations Under 20 Months Aged Out No longer eligible based on patient's age to complete this topic Insurance [employer] Care Teams Communications Technologist Relationship Specialty Start Date End Date Leanne Ruiz NP [address] [place] [address] PCP - General NURSE PRACTITIONER 01/10/21
--- OUTSIDE RECORDS SUMMARY | 2024-12-11 11:49 | XMS_ITS | Clinical Summary ---
Author Organization [facility] Address [address] [place] [address] Care Team Providers Care Head Of Data Name Role Phone Venice Ross MD Primary Care Provider [phone] Source Comments [facility],non-owned Affiliates and Associated Physician Practices is amultiple site organization consisting of ambulatory clinics and hospital sitesin [place], [place], [place] and [place]. This disclosure is being madepursuant to the Care Everywhere program and may not contain all information available regarding this patient. Last updated 17.[facility] Social History Tobacco Use Types Packs/Day Years [...] 2015 ZOSTER VACCINE (1 of 2) 2015 DEPRESSION SCREENING 03/08/2024 COVID-19 VACCINE (1 - 2023-2 5 season) 2024 INFLUENZA VACCINE (#1) 2024 HIB VACCINE Aged [...] complete this topic Insurance [employer] Care Teams Head Of Data Relationship Specialty Start Date End Date Venice Ross MD [address] [place] [phone] PCP - General 12/02/18
--- OUTSIDE RECORDS SUMMARY | 2024-12-11 11:49 | XMS_ITS | Encounter Summary ---
Author Organization [facility] Address [address] [place] [address] Care Team Providers Care Logistics Planner Name Role Phone Venice Ross MD Primary Care Provider Encounter Details Date Type Department Care Team (Late st Contact Info) Description 11/20/2022 Lab Requisition [facility] - DermPath Lab [address] [place] [phone] Cooper Burnham MD [facility] DERMATOLOGY [address] [place] [phone] Neoplasm of uncertain behavior of skin [...] AM CDT) Case Report Dermatopathology Report Case: [id number] Authorizing Provider: Cooper Burnham MD Collected: 11/20/2022 03:33 AM Ordering Location: [facility] DermPath Lab Received: 11/23/2022 01:09 PM Pathologist: [...] characteristic determined by the Dermatopathology Laboratory at [facility], directed by Dr. Alena Beaver. These tests need not be, and therefore are not, approved by the [place] Food and Drug Administration. The tests are used for clinical purposes. Billing Codes Specimen Charges Stain Charges 84077 1 3 1:18 PM CDT DERMATOPATHOLOGY LABORATORY Embedded Images 3 1:18 PM CDT DERMATOPATHOLOGY LABORATORY Pathology/Cytolo gy TISSUE SPECIMEN FROM SKIN / Unknown 11/20/2022 3:33 AM CDT 11/23/2022 1:09 PM CDT Cooper Burnham MD LAB - PATHOLOGY/CYTOLOGY ORDE ADIS Final Result DERMATOPATHOLOGY LABORATORY [facility] - Department of Dermatology [address], [address] [phone] documented in this encounter Visit Diagnoses Diagnosis Neoplasm of uncertain behavior of skin documented in this encounter Care Teams Logistics Planner Relationship Specialty Start Date End Date Venice Ross MD [address] [place], [place] [phone] PCP - General 12/02/18 documented as of this encounter
[2024-12-11 18:31] LABS: Hematocrit 41.0 % (37.0-47.0); Hemoglobin 13.6 g/dL (12.0-15.0); Immature Granulocyte Percent A 0.3 % (0-0.5); Lymphocytes Absolute Auto 2.34 K/mm3 (0.9-3.2); Mean Corpuscular HGB Conc 33.2 g/dl (32-36); Mean Corpuscular Hemoglobin 32.1 pg (26-34); Mean Corpuscular Volume 96.7 fl (80-100); Nucleated Red Blood Cells Absolute Auto 0.000 K/mm3 (0.0-0.012); Nucleated Red Blood Cells Perc 0.0 % (0.0-0.2); Platelet Count Result 241 k/mm3 (150-375); Red Blood Count 4.24 M/mm3 (4.2-5.4); White Blood Count 6.0 K/mm3 (4.5-10.0)
[2024-12-11 18:33] LABS: Alanine Aminotransferase 27 U/L (6-35); Albumin Level 4.2 g/dL (3.5-5.1); Alkaline Phosphatase 59 U/L (38-126); Anion Gap 6 mmol/L (4-12); Aspartate Amino Transferase 68 U/L (14-36); Bilirubin,Total 0.4 mg/dL (0.2-1.3); Blood Urea Nitrogen 10 mg/dL (7-17); Calcium 9.6 mg/dL (8.4-10.2); Carbon Dioxide 27 mmol/L (22-30); Chloride 104 mmol/L (98-107); Estimated Glomerular Filt Rate > 60; Glucose 86 mg/dL (65-110); Potassium 4.4 mmol/L (3.4-5.0); Sodium 137 mmol/L (137-145); Total Protein 7.5 g/dL (6.3-8.2)
[2024-12-11 19:19] LABS: Thyroid Stimulating Hormone 2.900 uIU/mL (0.465-4.680)
== END 2024-12-11 10:29 | disposition home or self-care (01) ==
PROVIDERS: PCP Nurse Practitioner Adult Health; Visit Provider Nurse Practitioner Adult Health
DX: I95.9 Hypotension, unspecified (principal); I10 Essential (primary) hypertension; R55 Syncope and collapse
CPT/HCPCS: 36415; 80053; 84443; 85025

== ENCOUNTER 2025-02-22 13:13 | Outpatient (CLI) | payer OTHER, SELFPAY ==
--- NOTE | ~2025-02-22 | MM_ITS ---
EXAMINATION: MM screening matt BI w rosanna HISTORY: Screening TECHNIQUE: Craniocaudal and mediolateral oblique 3-D tomosynthesis images were obtained and synthetic 2-D images were generated. CAD analysis was submitted and interpreted. COMPARISON: No prior mammogram is available for comparison at this institution. BREAST PARENCHYMAL COMPOSITION: Not dense: There are scattered areas of fibroglandular density. FINDINGS: There is no evidence of suspicious mass, calcification, or architectural distortion to suggest malignancy in either breast. There has been no suspicious interval change. IMPRESSION: 1. No mammographic evidence of malignancy. 2. Recommend routine screening mammography in one year. BI-RADS Category 1: Negative Reviewed, dictated and finalized at location O. OSURGICAL PHYSICIAN ASSISTANT
--- OUTSIDE RECORDS SUMMARY | 2025-02-22 14:08 | XMS_ITS | Clinical Summary ---
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 Gender Identity Not on file Sexual Orientation Not on file Last Filed Vital Signs Vital Sign Reading Time Taken Comments Blood Pressure 130/86 01/21/2022 11:58 AM COAGULATING OPERATOR Pulse 63 01/21/2022 11:58 AM COAGULATING OPERATOR Temperature 36.7 C (98 F) 01/21/2022 11:58 AM COAGULATING OPERATOR Respiratory Rate 16 01/21/2022 11:58 AM COAGULATING OPERATOR Oxygen Saturation 99% 01/21/2022 11:58 AM COAGULATING OPERATOR Inhaled Oxygen Concentration - - Weight 89.8 kg (198 lb) 01/21/2022 11:58 AM COAGULATING OPERATOR Height 162.6 cm (5' 4) 01/21/2022 11:58 AM COAGULATING OPERATOR Body Mass Index 33.99 01/21/2022 11:58 AM COAGULATING OPERATOR Plan of Treatment Not on file Insurance [employer] [facility] PPO Care Teams Boat Dock Operator Relationship Specialty Start Date End Date Leanne Ruiz NP PCP - General Nurse Practitioner 05/10/17 Venice Ross MD [address] [address] 05/10/17
--- OUTSIDE RECORDS SUMMARY | 2025-02-22 14:08 | XMS_ITS | Clinical Summary ---
Author Organization [facility] Address [address] [place] [address] Care Team Providers Care Plater Helper Name Role Phone Venice Ross MD Primary Care Provider Source Comments [facility],non-owned Affiliates and Associated Physician Practices is amultiple site organization consisting of ambulatory clinics and hospital sitesin [place], [place], [place] and [place]. This disclosure is being madepursuant to the Care Everywhere program and may not contain all information available regarding this patient. Last updated 17.[facility] Social History Tobacco Use Types Packs/Day Years [...] DEPRESSION SCREENING 03/08/2024 COVID-19 VACCINE (1 - 2024-2 6 season) 2024 INFLUENZA VACCINE (#1) 2024 HIB [...] complete this topic Insurance [employer] Care Teams Plater Helper Relationship Specialty Start Date End Date Venice Ross MD [address] [place] [phone] PCP - General 12/02/18
--- OUTSIDE RECORDS SUMMARY | 2025-02-22 14:08 | XMS_ITS | Encounter Summary ---
Author Organization [facility] Address [address] [place] [address] Care Team Providers Care Gas Station Operator Name Role Phone Venice Ross MD Primary Care Provider Encounter Details Date Type Department Care Team (Late st Contact Info) Description 11/20/2022 Lab Requisition [facility] - DermPath Lab [address] [facility] [address] [place] [phone] Cooper Burnham MD [facility] DERMATOLOGY [address] [place] [phone] Neoplasm of uncertain behavior of skin [...] AM CDT) Case Report Dermatopathology Report Case: [id number] Authorizing Provider: Cooper Burnham MD Collected: 11/20/2022 03:33 AM Ordering Location: [facility] DermPath Lab Received: 11/23/2022 01:09 PM Pathologist: [...] characteristic determined by the Dermatopathology Laboratory at [facility], directed by Dr. Alena Beaver. These tests need not be, and therefore are not, approved by the [place] Food and Drug Administration. The tests are used for clinical purposes. Billing Codes Specimen Charges Stain Charges 81585 1 3 1:18 PM CDT DERMATOPATHOLOGY LABORATORY Embedded Images 3 1:18 PM CDT DERMATOPATHOLOGY LABORATORY Pathology/Cytolo gy TISSUE SPECIMEN FROM SKIN / Unknown 11/20/2022 3:33 AM CDT 11/23/2022 1:09 PM CDT Cooper Burnham MD LAB - PATHOLOGY/CYTOLOGY ORDE ADIS Final Result DERMATOPATHOLOGY LABORATORY [facility] - Department of Dermatology [address] [phone] documented in this encounter Visit Diagnoses Diagnosis Neoplasm of uncertain behavior of skin documented in this encounter Care Teams Gas Station Operator Relationship Specialty Start Date End Date Venice Ross MD [address] [place], [place] [phone] PCP - General 12/02/18 documented as of this encounter
--- OUTSIDE RECORDS SUMMARY | 2025-02-22 14:08 | XMS_ITS | Clinical Summary ---
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
== END 2025-02-22 13:14 | disposition home or self-care (01) ==
LOC: CHSIMG 13:14
PROVIDERS: PCP Nurse Practitioner Adult Health; Visit Provider Obstetrics & Gynecology
DX: Z12.31 Encounter for screening mammogram for malignant neoplasm of breast (principal)
CPT/HCPCS: 77063; 77067